=== PATIENT | female | born 1945 | race Caucasian/White ===

== ENCOUNTER 2016-08-16 12:39 | Inpatient (IN) | payer MEDICARE, MEDICAID ==
[~2016-08-16] VITALS: Ht 165.1 cm; Wt 86.2 kg
[~2016-08-16 12:39] MED LIST: DIOVAN PO; NORCO PO; WARF2.5T47 PO; WARF5TAB77 PO
[2016-08-16] MEDS ORDERED: WARF10TA2 PO (12:57)
[2016-08-16] MEDS ORDERED: ONDANSETRON 4 MG/2 ML VIAL IV ONE (13:00)
[2016-08-16] MEDS ORDERED: MORPHINE SULFATE 2 MG/1 ML DISP.SYRIN IV ONE ×2 (13:00→14:15)
[2016-08-16 13:19] LABS: BASOPHILS % (AUTO) 0.4 % (0.0-2.0); EOSINOPHILS # (AUTO) 0.3 K/uL (0.0-0.7); EOSINOPHILS % (AUTO) 2.4 % (0.0-7.0); HEMATOCRIT 29.8 % (37-47); HEMOGLOBIN 9.5 G/DL (12.0-16.0); LYMPHOCYTES # (AUTO) 2.1 K/UL (0.8-4.8); LYMPHOCYTES % (AUTO) 18.4 % (20.5-51.5); MEAN CORPUSCULAR HEMOGLOBIN 24.4 UUG (27.0-31.0); MEAN CORPUSCULAR HGB CONC 32 g/dL (32.0-37.0); MEAN CORPUSCULAR VOLUME 76.2 FL (81.0-99.0); MONOCYTES # (AUTO) 0.8 K/UL (0.1-1.30); MONOCYTES % (AUTO) 7.1 % (0.0-11.0); NEUTROPHILS # (AUTO) 8.4 K/UL (1.8-8.9); NEUTROPHILS % (AUTO) 71.7 % (38.5-71.5); PLATELET COUNT (AUTO) 398 K/UL (150-450); RED BLOOD CELL COUNT(AUTO) 3.91 MIL/UL (4.2-5.4); WHITE BLOOD COUNT (AUTO) 11.6 K/UL (4.0-11.2)
[2016-08-16 13:22] LABS: CARBON DIOXIDE 27 mmol/L (21-32); CHLORIDE 99 mmol/L (98-107); CREATININE 0.7 mg/dL (0.6-1.3); GLUCOSE 127 mg/dL (74-106); POTASSIUM 3.6 mmol/L (3.5-5.1); UREA NITROGEN, BLOOD 17 mg/dL (7-18)
[2016-08-16] MEDS ORDERED: MORPHINE SULFATE 4 MG/1 ML DISP.SYRIN ONE ×2 (13:23→14:40)
[2016-08-16] MEDS ORDERED: ONDANSETRON 4 MG/2 ML VIAL ONE (13:24)
[2016-08-16 13:29] LABS: ALANINE AMINOTRANSFERASE 21 U/L (14-59); ALKALINE PHOSPHATASE 52 U/L (50-136); ASPARTATE AMINOTRANSFERASE 16 U/L (15-37); BILIRUBIN,DIRECT < 0.1 mg/dL (0.0-0.2); BILIRUBIN,TOTAL 0.2 mg/dL (0.2-1.0); TOTAL PROTEIN, SERUM 6.8 g/dL (6.4-8.2)
[2016-08-16] MEDS ORDERED: IV NORMAL SALINE 1000 ML BAG IV ONE (14:15)
--- NOTE | 2016-08-16 14:51 | NUR ---
LEXY LEDESMA TALKED TO DR. CHATO GARCIA FOR ORTHO CONSULT.
--- NOTE | 2016-08-16 15:23 | NUR ---
PT RECEIVED FROM ER VIA RNEPHI FOR LEFT HIP FX IN STABLE CONDITION.V/S ARE STABLE.ORIENT THE PT TO ROOM AND SURROUNDINGS,FAMILY AT BED SIDE.
[2016-08-16 15:30] VITALS: BP 107/66
[2016-08-16] MEDS ORDERED: ONDANSETRON 4 MG/2 ML VIAL IV PRN (16:00)
[2016-08-16] MEDS ORDERED: ACETAMINOPHEN 650 MG SUPP.RECT RC PRN (16:00)
--- NOTE | 2016-08-16 16:30 | NUR ---
PT SEEN BY DR GARCIA AND DR HAMPTON
[2016-08-16 16:40] LABS: *BILIRUBIN,URIN NEGATIVE (NEGATIVE); *BLOOD, URINE Trace-lysed (NEGATIVE); *CLARITY,URINE CLEAR (CLEAR); *COLOR,URINE YELLOW (YELLOW); *KETONES,URINE NEGATIVE (NEGATIVE); *PROTEIN,URINE NEGATIVE (NEGATIVE); *UROBILINOGEN,URINE 0.2 E.U./dl (NORMAL); LEUKOCYTE ESTERASE ,URINE NEGATIVE (NEGATIVE); NITRITE, URINE NEGATIVE (NEGATIVE); UGLUCOSE NEGATIVE (NEGATIVE)
[2016-08-16] MEDS: FUROSEMIDE 20 MG/2 ML VIAL IV SCH (16:45)
[2016-08-16 16:52] LABS: SQUAMOUS EPITHELIAL CELL,UR FEW /HPF (NONE SEEN); WBC,URINE 0-3 /HPF (0-3)
[2016-08-16 20:00] VITALS: BP 96/55
--- NOTE | 2016-08-16 20:00 | NUR ---
PATIENT AWAKE,ALERT,ORIENTED,FAMILY VISITING AT BEDSIDE,NSR ON MONITOR,LEFT LEG WITH FELICIANO'S TRACTION ON, PEDAL PULSE INTACT,SKIN WARM,PATIENT RESTING WELL REPORTS MINIMAL PAIN,YANEZ CATH INTACT DRAINAGE CLEAR YELLOWISH URINE.
[2016-08-16 22:51] VITALS: BP 110/66
[2016-08-16] MEDS: MORPHINE SULFATE 2 MG/1 ML DISP.SYRIN IV PRN (22:54)
--- NOTE | 2016-08-16 23:00 | NUR ---
BP 112/60 MORPHINE 2 MG IV ADMIN FOR PAIN TO LEFT HIP 12/03,CONTINUE CLOSELY MONITOR.
--- NOTE | 2016-08-16 23:35 | NUR ---
PAIN REASSESS,MORPHINE EFFECTIVE PAIN LEVEL 2/10,PATIENT TURN AND REPOSITIONING APPEARS COMFORTABLE ,BP 111/70,NSR RATE 80'S BPM.
[2016-08-16 23:56] VITALS: BP 111/70
[2016-08-17] MEDS: MORPHINE SULFATE 2 MG/1 ML DISP.SYRIN IV PRN ×5 (02:44→20:24)
[2016-08-17 04:00] VITALS: BP 110/78
--- NOTE | 2016-08-17 06:20 | NUR ---
continue pain management with morphine 2 mg iv q 3h as needed for pain control,orozco cath drainage adequate clear urine out put,bp 110/78, NSR rate 80's on monitor.
[2016-08-17] MEDS: PANTOPRAZOLE SODIUM 40 MG TABLET.DR PO SCH (06:30)
[2016-08-17 07:11] LABS: THYROID STIMULATING HORMONE 2.177 mIU/mL (0.358-3.740)
[2016-08-17 07:17] LABS: BASOPHILS % (AUTO) 0.4 % (0.0-2.0); EOSINOPHILS # (AUTO) 0.3 K/uL (0.0-0.7); EOSINOPHILS % (AUTO) 2.3 % (0.0-7.0); HEMATOCRIT 27.8 % (37-47); LYMPHOCYTES # (AUTO) 2.2 K/UL (0.8-4.8); LYMPHOCYTES % (AUTO) 18.9 % (20.5-51.5); MEAN CORPUSCULAR HEMOGLOBIN 24.9 UUG (27.0-31.0); MEAN CORPUSCULAR HGB CONC 32 g/dL (32.0-37.0); MEAN CORPUSCULAR VOLUME 76.9 FL (81.0-99.0); MONOCYTES # (AUTO) 0.8 K/UL (0.1-1.30); MONOCYTES % (AUTO) 7.1 % (0.0-11.0); NEUTROPHILS # (AUTO) 8.2 K/UL (1.8-8.9); NEUTROPHILS % (AUTO) 71.3 % (38.5-71.5); PLATELET COUNT (AUTO) 375 K/UL (150-450); RED BLOOD CELL COUNT(AUTO) 3.62 MIL/UL (4.2-5.4); WHITE BLOOD COUNT (AUTO) 11.5 K/UL (4.0-11.2)
[2016-08-17 07:20] LABS: IRON, SERUM 21 ug/dL (50-175)
[2016-08-17 07:24] LABS: ALANINE AMINOTRANSFERASE 19 U/L (14-59); ALKALINE PHOSPHATASE 50 U/L (50-136); ASPARTATE AMINOTRANSFERASE 17 U/L (15-37); BILIRUBIN,TOTAL 0.2 mg/dL (0.2-1.0); CARBON DIOXIDE 30 mmol/L (21-32); CHLORIDE 100 mmol/L (98-107); CHOLESTEROL 188 mg/dL (<200); CREATININE 0.6 mg/dL (0.6-1.3); GLUCOSE 92 mg/dL (74-106); HDL CHOLESTEROL 45 mg/dL (40-60); MAGNESIUM 1.6 mg/dL (1.8-2.4); PHOSPHOROUS 3.8 mg/dL (2.5-4.9); POTASSIUM 3.8 mmol/L (3.5-5.1); TOTAL PROTEIN, SERUM 6.3 g/dL (6.4-8.2); TRIGLYCERIDES 127 MG/DL (30-150); UREA NITROGEN, BLOOD 17 mg/dL (7-18)
[2016-08-17] MEDS: FUROSEMIDE 20 MG/2 ML VIAL IV SCH (08:13)
[2016-08-17] MEDS ORDERED: PANTOPRAZOLE SODIUM 40 MG VIAL IV SCH (09:00)
[2016-08-17] MEDS ORDERED: PHYTONADIONE 10 MG/1 ML AMPUL SQ ONE (11:30)
[2016-08-17 11:42] VITALS: BP 115/71
[2016-08-17] MEDS: MAGNESIUM SULFATE/D5W 100 ML IV SCH ×2 (11:52→12:31)
[2016-08-17 16:00] VITALS: BP 130/77
[2016-08-17] MEDS ORDERED: DOCUSATE SODIUM 100 MG/10 ML LIQUID UDC PO PRN (19:00)
[2016-08-17] MEDS: ACETAMINOPHEN 325 MG TABLET PO PRN (19:58)
[2016-08-17 20:48] VITALS: BP 113/71
--- NOTE | 2016-08-17 21:00 | NUR ---
patient seen by REID Bender. on tele monitor,TELE D/C.Patient resting well, sponge bath given, reposition and turn,proper body alignment observed, continue Baez's Traction ,pedal pulse intact,patient encouraged to use exercise incentive spirometer,doing well.continue pain control with morphine 2mg iv as needed,closely monitor bp and stable.
[2016-08-17] MEDS ORDERED: DOCUSATE SODIUM 100 MG/10 ML LIQUID UDC ONE (21:38)
[2016-08-18] MEDS: MORPHINE SULFATE 2 MG/1 ML DISP.SYRIN IV PRN ×3 (03:08→21:34)
[2016-08-18 05:00] VITALS: BP 113/68
[2016-08-18 06:46] LABS: BASOPHILS # (AUTO) 0.1 K/uL (0.0-8.0); BASOPHILS % (AUTO) 0.5 % (0.0-2.0); EOSINOPHILS # (AUTO) 0.3 K/uL (0.0-0.7); EOSINOPHILS % (AUTO) 3.4 % (0.0-7.0); HEMATOCRIT 27.2 % (37-47); HEMOGLOBIN 8.7 G/DL (12.0-16.0); LYMPHOCYTES # (AUTO) 1.7 K/UL (0.8-4.8); LYMPHOCYTES % (AUTO) 16.8 % (20.5-51.5); MEAN CORPUSCULAR HEMOGLOBIN 24.5 UUG (27.0-31.0); MEAN CORPUSCULAR HGB CONC 32 g/dL (32.0-37.0); MEAN CORPUSCULAR VOLUME 76.4 FL (81.0-99.0); MONOCYTES # (AUTO) 0.8 K/UL (0.1-1.30); MONOCYTES % (AUTO) 8.3 % (0.0-11.0); NEUTROPHILS # (AUTO) 7.1 K/UL (1.8-8.9); PLATELET COUNT (AUTO) 326 K/UL (150-450); RED BLOOD CELL COUNT(AUTO) 3.57 MIL/UL (4.2-5.4)
[2016-08-18] MEDS: PANTOPRAZOLE SODIUM 40 MG TABLET.DR PO SCH (07:05)
[2016-08-18 07:31] LABS: CARBON DIOXIDE 31 mmol/L (21-32); CHLORIDE 100 mmol/L (98-107); CREATININE 0.4 mg/dL (0.6-1.3); GLUCOSE 100 mg/dL (74-106); MAGNESIUM 1.9 mg/dL (1.8-2.4); PHOSPHOROUS 2.9 mg/dL (2.5-4.9); POTASSIUM 3.7 mmol/L (3.5-5.1); UREA NITROGEN, BLOOD 10 mg/dL (7-18)
[2016-08-18] MEDS: IV NS 1000 ML 1,000 ML IV PRN ×2 (08:41→23:46)
[2016-08-18] MEDS ORDERED: LIDOCAINE HCL 1% 20 ML VIAL MC ONE (09:33)
[2016-08-18] MEDS ORDERED: PROPOFOL 200 MG/20 ML BOTTLE IV ONE (09:33)
[2016-08-18] MEDS ORDERED: IV NORMAL SALINE 1000 ML BAG IV ONE (09:33)
[2016-08-18] MEDS ORDERED: ONDANSETRON 4 MG/2 ML VIAL IV ONE (09:33)
[2016-08-18] MEDS ORDERED: EPHEDRINE SULFATE 50 MG/ML AMPUL MC ONE (09:33)
[2016-08-18] MEDS ORDERED: GLYCOPYRROLATE 0.2 MG/ML VIAL MC ONE (09:33)
[2016-08-18] MEDS ORDERED: CEFAZOLIN 1 G VIAL MC ONE (09:33)
[2016-08-18] MEDS ORDERED: NEOSTIGMINE METHYLSULFATE 10 MG/10 ML VIAL IV ONE (09:33)
[2016-08-18] MEDS ORDERED: DEXAMETHASONE SOD PHOSPHATE 4 MG INJ IV ONE (09:33)
[2016-08-18] MEDS ORDERED: IRR NORMAL SALINE IRRIGATION 2000 ML BOTTLE IR ONE (09:33)
[2016-08-18] MEDS ORDERED: SEVOFLURANE 250 ML BOTTLE IH ONE (09:38)
[2016-08-18 11:52] VITALS: BP 133/81
[2016-08-18] MEDS ORDERED: POLYMYXIN B SULFATE 500,000 UNITS, BACITRACIN 50,000 UNITS, NORMAL SALINE 20 ML MC ONE ×3 (13:30)
--- NOTE | 2016-08-18 13:50 | NUR ---
pt went to or for surgery via bed in stable condition.
[2016-08-18] MEDS ORDERED: FENTANYL CITRATE 100 MCG/2 ML AMPUL ONE ×2 (13:56→17:18)
[2016-08-18] MEDS ORDERED: ROCURONIUM BROMIDE 50 MG/5 ML VIAL ONE (14:11)
[2016-08-18] MEDS ORDERED: HYDROCODONE/APAP 5-325MG TABLET PO PRN (16:45)
[2016-08-18] MEDS ORDERED: WARFARIN SODIUM 2.5 MG TABLET PO SCH (17:00)
--- NOTE | 2016-08-18 17:45 | NUR ---
PT RECEIVED FROM RECOVERY ROOM VIA BED IN STABLE CONDITION .V/S ARE STABLE.
[2016-08-18 17:46] VITALS: BP 103/50
[2016-08-18 18:03] VITALS: BP 103/65
[2016-08-18 18:17] VITALS: BP 110/66
--- NOTE | 2016-08-18 19:30 | NUR ---
AWAKE,FAMILY AT BEDSIDELEFT HIP DRESSINGS DRY AND INTACT,ABDUCTOR PILLOW INTACT.SPEAKS FARSI.IN NO ACUTE DISTRESS. RESTING COMFORTABLY.
[2016-08-18] MEDS: OLOPATADINE 0.1% OPHT DROP 5 ML BOTTLE EACHEYE SCH (19:47)
[2016-08-18 20:12] VITALS: BP 114/76
[2016-08-18] MEDS ORDERED: DOCUSATE SODIUM 100 MG/10 ML LIQUID UDC PO PRN (21:00)
[2016-08-18] MEDS: CEFAZOLIN 1 G in PREMIXED 1 EACH IV SCH (21:23)
[2016-08-19] VITALS (13 sets, daily range): BP systolic 90–130; BP diastolic 46–74
[2016-08-19] MEDS: MORPHINE SULFATE 2 MG/1 ML DISP.SYRIN IV PRN ×2 (00:22→17:44)
[2016-08-19] MEDS: IBUPROFEN 600 MG TABLET PO PRN (01:37)
[2016-08-19] MEDS: ACETAMINOPHEN 325 MG TABLET PO PRN (01:37)
[2016-08-19] MEDS ORDERED: IBUPROFEN 600 MG TABLET ONE (01:47)
[2016-08-19] MEDS ORDERED: ACETAMINOPHEN 325 MG TABLET ONE (01:47)
--- NOTE | 2016-08-19 02:01 | NUR ---
CALLED DR CRUZ REGARDING MEDICATION NOT EFFECTIVE,ORDERED TYLENOL AND MOTRIN FOR PAIN .
[2016-08-19] MEDS: CEFAZOLIN 1 G in PREMIXED 1 EACH IV SCH (05:15)
--- NOTE | 2016-08-19 05:55 | NUR ---
SLEPT AFTER GIVING TYLENOL AND MOTRIN,IN NO ACUTE DISTRESS.
[2016-08-19] MEDS: PANTOPRAZOLE SODIUM 40 MG TABLET.DR PO SCH (06:04)
[2016-08-19 06:46] LABS: BASOPHILS % (AUTO) 0.2 % (0.0-2.0); EOSINOPHILS % (AUTO) 0.4 % (0.0-7.0); HEMOGLOBIN 7.2 G/DL (12.0-16.0); LYMPHOCYTES # (AUTO) 1.5 K/UL (0.8-4.8); LYMPHOCYTES % (AUTO) 13.7 % (20.5-51.5); MEAN CORPUSCULAR HEMOGLOBIN 24.5 UUG (27.0-31.0); MEAN CORPUSCULAR HGB CONC 32 g/dL (32.0-37.0); MEAN CORPUSCULAR VOLUME 77.3 FL (81.0-99.0); MONOCYTES # (AUTO) 0.9 K/UL (0.1-1.30); MONOCYTES % (AUTO) 8.8 % (0.0-11.0); NEUTROPHILS # (AUTO) 8.3 K/UL (1.8-8.9); NEUTROPHILS % (AUTO) 76.9 % (38.5-71.5); PLATELET COUNT (AUTO) 318 K/UL (150-450); RED BLOOD CELL COUNT(AUTO) 2.92 MIL/UL (4.2-5.4); WHITE BLOOD COUNT (AUTO) 10.7 K/UL (4.0-11.2)
[2016-08-19 06:55] LABS: CARBON DIOXIDE 26 mmol/L (21-32); CHLORIDE 101 mmol/L (98-107); CREATININE 0.6 mg/dL (0.6-1.3); GLUCOSE 142 mg/dL (74-106); MAGNESIUM 1.7 mg/dL (1.8-2.4); PHOSPHOROUS 2.4 mg/dL (2.5-4.9); POTASSIUM 4.4 mmol/L (3.5-5.1); UREA NITROGEN, BLOOD 12 mg/dL (7-18)
[2016-08-19 07:17] LABS: HEMATOCRIT 22.6 % (37-47)
[2016-08-19] MEDS: OLOPATADINE 0.1% OPHT DROP 5 ML BOTTLE EACHEYE SCH ×2 (08:42→20:18)
[2016-08-19] MEDS ORDERED: FUROSEMIDE 20 MG/2 ML VIAL IV PRN (10:00)
[2016-08-19] MEDS ORDERED: NEUTRA PHOS PACKET PO ONE (10:00)
[2016-08-19] MEDS ORDERED: MAGNESIUM OXIDE 400 MG TABLET PO ONE (10:00)
[2016-08-19] MEDS ORDERED: WARFARIN SODIUM 2.5 MG TABLET PO SCH (17:00)
[2016-08-19] MEDS: WARFARIN SODIUM 2.5 MG TABLET PO SCH (17:43)
[2016-08-19] MEDS ORDERED: MAGNESIUM HYDROXIDE 30 ML LIQUID UDC PO ONE (17:45)
[2016-08-19] MEDS: IV NS 1000 ML 1,000 ML IV PRN (19:30)
--- NOTE | 2016-08-19 19:30 | NUR ---
RESTING IN BED, ALERT AND ORIENTED. FARSI SPEAKING. ABLE TO MAKE NEEDS KNOWN. DRESSING ON TO LEFT HIP DRY AND INTACT. NO COMPLAINTS OF PAIN NOTED AT THIS TIME. PATIENT CURRENTLY ON HEPLOCK, REFUSED IV FLUIDS AT THIS TIME. EXPLAINED RISK AND BENEFITS BUT STILL REFUSED. WILL CONTINUE TO ENCOURAGE. WITH COMPLAINTS OF CONSTIPATION. CALL LIGHT WITHIN REACH. WILL CONTINUE TO MONITOR
[2016-08-19] MEDS ORDERED: BISACODYL 10 MG SUPP.RECT RC ONE (22:00)
--- NOTE | 2016-08-19 22:45 | NUR ---
SUPPOSITORY WAS GIVEN ORDERED, PATIENT NOW HAD LARGE BM
[2016-08-20] MEDS: PANTOPRAZOLE SODIUM 40 MG TABLET.DR PO SCH (06:10)
[2016-08-20 06:33] VITALS: BP 149/90
--- NOTE | 2016-08-20 06:33 | NUR ---
SLEPT INTERMITTENTLY DURING THE SHIFT. NO ACUTE DISTRESS NOTED. ABLE TO ASSIST DURING TURNING AND REPOSITIONING. NEEDS ATTENDED. ALL DUE MEDS GIVEN ORDERED. KEPT CLEAN AND DRY. CALL LIGHT WITHIN REACH
--- NOTE | 2016-08-20 07:15 | NUR ---
PT RECEIVED IN BED SLEEPING .NO C/O PAIN NOTED.V/S ARE STABLE.
[2016-08-20 07:30] LABS: BASOPHILS % (AUTO) 0.4 % (0.0-2.0); EOSINOPHILS # (AUTO) 0.2 K/uL (0.0-0.7); EOSINOPHILS % (AUTO) 2.1 % (0.0-7.0); HEMATOCRIT 28.3 % (37-47); HEMOGLOBIN 9.3 G/DL (12.0-16.0); LYMPHOCYTES # (AUTO) 2.2 K/UL (0.8-4.8); LYMPHOCYTES % (AUTO) 18.7 % (20.5-51.5); MEAN CORPUSCULAR HEMOGLOBIN 26.1 UUG (27.0-31.0); MEAN CORPUSCULAR HGB CONC 33 g/dL (32.0-37.0); MEAN CORPUSCULAR VOLUME 79.2 FL (81.0-99.0); MONOCYTES # (AUTO) 1.2 K/UL (0.1-1.30); MONOCYTES % (AUTO) 9.9 % (0.0-11.0); NEUTROPHILS # (AUTO) 8.3 K/UL (1.8-8.9); NEUTROPHILS % (AUTO) 68.9 % (38.5-71.5); PLATELET COUNT (AUTO) 324 K/UL (150-450); RED BLOOD CELL COUNT(AUTO) 3.57 MIL/UL (4.2-5.4); WHITE BLOOD COUNT (AUTO) 11.9 K/UL (4.0-11.2)
--- NOTE | 2016-08-20 07:32 | NUR ---
FOLLY CATHETER REMOVED PER MD ORDERS.
[2016-08-20 07:43] LABS: CARBON DIOXIDE 29 mmol/L (21-32); CHLORIDE 100 mmol/L (98-107); CREATININE 0.5 mg/dL (0.6-1.3); GLUCOSE 101 mg/dL (74-106); MAGNESIUM 1.8 mg/dL (1.8-2.4); POTASSIUM 3.9 mmol/L (3.5-5.1); UREA NITROGEN, BLOOD 11 mg/dL (7-18)
[2016-08-20] MEDS: OLOPATADINE 0.1% OPHT DROP 5 ML BOTTLE EACHEYE SCH (08:05)
[2016-08-20] MEDS: IBUPROFEN 600 MG TABLET PO PRN ×2 (09:03→13:28)
--- NOTE | 2016-08-20 11:02 | NUR ---
PT SEEN AND EVALUATED BY PHYSICAL THERAPIST ,PT IS SITTING UP IN THE CHAIR
[2016-08-20 12:01] VITALS: BP 126/83
[2016-08-20] MEDS: ACETAMINOPHEN 325 MG TABLET PO PRN (13:28)
--- NOTE | 2016-08-20 13:40 | NUR ---
OH WALK WITH THE PHYSICAL THERAPY ,TOLERATED WELL,NO C/O PAIN NOTED,
[2016-08-20 15:58] VITALS: BP 116/64
[2016-08-20] MEDS ORDERED: NEUTRA PHOS PACKET PO ONE (16:00)
[2016-08-20] MEDS ORDERED: WARF2.5T47 PO (16:12)
[2016-08-20] MEDS ORDERED: DOCU50LI PO (16:12)
[2016-08-20] MEDS ORDERED: HYDR-552 PO (16:12)
[2016-08-20] MEDS ORDERED: ACET325T53 PO (16:12)
--- NOTE | 2016-08-20 16:14 | NUR ---
The patient will be discharged today to [facility] [ ; [address] [place] [address]] via [facility]. Her family was given a [facility] booklet and they toured, [facility], [facility], [facility] and [facility]. Their first choice was [facility] but they were not able to accommodate the patient. Their second choice was [facility]. Julianne from [facility] confirmed that they will admit the patient today. Her nurse, Elizabeth, is aware of her discharge plan and will call the facility for the report.
[2016-08-20] MEDS: WARFARIN SODIUM 2.5 MG TABLET PO SCH (16:51)
--- NOTE | 2016-08-20 17:49 | NUR ---
D/C ORDERS RECEIVED NOTED AND CARRIED OUT.D/C INSTRUCTIONS AND EDUCATIONS GIVEN TI THE PT .RN REPORT GIVEN OVER TO [facility].PT LEFT THE FACILITY VIA AMBULANCES IN STABLE CONDITION.
== END 2016-08-20 17:45 | DRG 469 ==
LOC: ER 12:39 → MED 14:55 → TELE 16:40 → MED 08-17 23:24
PROVIDERS: ADMIT Internal Medicine; ATTEND Internal Medicine
PROC: 0SRS0JZ Replacement of Left Hip Joint, Femoral Surface with Synthetic Substitute, Open Approach (ICD-10-PCS; principal; 2016-08-18 14:00)
PROC: 30233N1 Transfusion of Nonautologous Red Blood Cells into Peripheral Vein, Percutaneous Approach (ICD-10-PCS; 2016-08-19)
DX: S72.032A Displaced midcervical fracture of left femur, initial encounter for closed fracture (principal); I50.31 Acute diastolic (congestive) heart failure; D62 Acute posthemorrhagic anemia; Z87.01 Personal history of pneumonia (recurrent); W01.0XXA Fall on same level from slipping, tripping and stumbling without subsequent striking against object, initial encounter; Y92.009 Unspecified place in unspecified non-institutional (private) residence as the place of occurrence of the external cause; E66.01 Morbid (severe) obesity due to excess calories; Z68.31 Body mass index [BMI] 31.0-31.9, adult; M25.462 Effusion, left knee; I27.2 Other secondary pulmonary hypertension; G89.29 Other chronic pain; K21.9 Gastro-esophageal reflux disease without esophagitis; Z87.81 Personal history of (healed) traumatic fracture; E78.5 Hyperlipidemia, unspecified; D72.829 Elevated white blood cell count, unspecified; R73.9 Hyperglycemia, unspecified; Z86.711 Personal history of pulmonary embolism; Z86.011 Personal history of benign neoplasm of the brain; Z90.49 Acquired absence of other specified parts of digestive tract; Z86.718 Personal history of other venous thrombosis and embolism; Z79.01 Long term (current) use of anticoagulants; I11.0 Hypertensive heart disease with heart failure; D50.0 Iron deficiency anemia secondary to blood loss (chronic)
CPT/HCPCS: 36415; 70030-TC; 71010; 72170; 73502; 73560; 82378; 83550; 83735; 84100; 84443; 85025; 85610; 85730; 86850; 86900; 86901; 86920; 87086; 93005; 93307; 97110; 97116; 97161; A4217; A4663; J0690; J1100; J1940; J2270; J2405; J2710; J3010; J3490; J7030; J7040; P9016-BL; P9021

== ENCOUNTER 2016-08-26 09:49 | Inpatient (IN) | payer MEDICARE, MEDICAID ==
[~2016-08-26] VITALS: Ht 157.5 cm; Wt 94.8 kg
[~2016-08-26 09:49] MED LIST changes: +ACET325T53 PO; -DIOVAN PO; +DOCU50LI PO; +HYDR-552 PO; -NORCO PO; -WARF5TAB77 PO
[2016-08-26] MEDS ORDERED: PANT40TA4 PO (10:19)
[2016-08-26] MEDS ORDERED: FERR325T28 PO (10:19)
[2016-08-26] MEDS ORDERED: RIVA10TA PO (10:19)
[2016-08-26] MEDS ORDERED: MAGN400T6 PO (10:19)
[2016-08-26] MEDS ORDERED: FURO-152 PO (10:19)
--- NOTE | 2016-08-26 10:24 | NUR ---
dr melgar at the bedside for eval and exam.
[2016-08-26] MEDS ORDERED: IV NORMAL SALINE 500 ML BAG IV ONE (10:30)
[2016-08-26] MEDS ORDERED: HYDROMORPHONE 1 MG/1 ML DISP.SYRIN IV ONE (10:45)
[2016-08-26] MEDS ORDERED: ONDANSETRON IV *ER 4 MG/2 ML VIAL IV ONE (10:45)
[2016-08-26 10:48] LABS: BASOPHILS % (AUTO) 0.3 % (0.0-2.0); EOSINOPHILS # (AUTO) 0.3 K/uL (0.0-0.7); EOSINOPHILS % (AUTO) 1.8 % (0.0-7.0); HEMATOCRIT 29.2 % (37-47); HEMOGLOBIN 9.5 G/DL (12.0-16.0); LYMPHOCYTES # (AUTO) 2.1 K/UL (0.8-4.8); MEAN CORPUSCULAR HEMOGLOBIN 25.8 UUG (27.0-31.0); MEAN CORPUSCULAR HGB CONC 32 g/dL (32.0-37.0); MEAN CORPUSCULAR VOLUME 79.7 FL (81.0-99.0); MONOCYTES # (AUTO) 0.7 K/UL (0.1-1.30); MONOCYTES % (AUTO) 4.6 % (0.0-11.0); NEUTROPHILS # (AUTO) 11.2 K/UL (1.8-8.9); NEUTROPHILS % (AUTO) 78.3 % (38.5-71.5); PLATELET COUNT (AUTO) 470 K/UL (150-450); RED BLOOD CELL COUNT(AUTO) 3.67 MIL/UL (4.2-5.4); WHITE BLOOD COUNT (AUTO) 14.3 K/UL (4.0-11.2)
[2016-08-26 10:55] LABS: CARBON DIOXIDE 26 mmol/L (21-32); CHLORIDE 96 mmol/L (98-107); CREATININE 0.9 mg/dL (0.6-1.3); GLUCOSE 78 mg/dL (74-106); POTASSIUM 4.8 mmol/L (3.5-5.1); UREA NITROGEN, BLOOD 28 mg/dL (7-18)
--- NOTE | 2016-08-26 11:00 | NUR ---
Mrsa collected and sent to lab. Belonging list completed.
[2016-08-26] MEDS ORDERED: ONDANSETRON 4 MG/2 ML VIAL ONE (11:01)
[2016-08-26] MEDS ORDERED: HYDROMORPHONE 1 MG/1 ML DISP.SYRIN ONE (11:01)
[2016-08-26 11:09] LABS: ALANINE AMINOTRANSFERASE 39 U/L (14-59); ALKALINE PHOSPHATASE 131 U/L (50-136); ASPARTATE AMINOTRANSFERASE 29 U/L (15-37); BILIRUBIN,DIRECT 0.1 mg/dL (0.0-0.2); BILIRUBIN,TOTAL 0.3 mg/dL (0.2-1.0); LIPASE 188 U/L (73-393); TOTAL PROTEIN, SERUM 6.8 g/dL (6.4-8.2)
[2016-08-26] MEDS ORDERED: DICL100G16 TP (11:09)
[2016-08-26] MEDS ORDERED: NA P133E RC (11:14)
[2016-08-26] MEDS ORDERED: BISA10SU8 RC (11:14)
[2016-08-26] MEDS ORDERED: MAGN400O6 PO (11:14)
--- NOTE | 2016-08-26 11:45 | NUR ---
NEW PATIENT TO ROOM 201B AWAKE ALERT COOPERATE WELL NO CHEST PAIN OR SOB VS TAKEN STABLE LEFT HIP SURGICAL INCISION CLEAN DRY WITH STRI STRIP INTACT PEDAL PULSE PALPABLE ABDUCTION PILLOW BET LEG ON FALL PRECAUTION BED ALARM ON AND CALL CHARLES IN REACH INSTRUCTION TO CALL WHEN NEED ,FAMILY AT BEDSIDE
[2016-08-26 12:18] VITALS: BP 98/46
--- NOTE | 2016-08-26 12:30 | NUR ---
DR HAMPTON HERE AND SEEN PATIENT AND DISCUSS WITH PATIENT FAMILY AT BEDSIDE
--- NOTE | 2016-08-26 15:00 | NUR ---
VOIDING WELL INCONTINENT OF URINE DIAPER CHANGE AND REPOSITION
[2016-08-26 15:38] VITALS: BP 111/77
--- NOTE | 2016-08-26 16:00 | NUR ---
C/O OF CONSTIPATION DR HAMPTON WAS INFORN NEW ORDER IN CHART
[2016-08-26] MEDS ORDERED: MAGNESIUM HYDROXIDE 30 ML LIQUID UDC PO PRN (16:30)
[2016-08-26] MEDS ORDERED: FLEET ENEMA 133 ML BOTTLE RC PRN (16:30)
--- NOTE | 2016-08-26 17:00 | NUR ---
MED PO PRN FOR CONSTIPATION GIVEN TODAY EAT DINNER WELL NO PAIN OR N/V
[2016-08-26] MEDS: FERROUS SULFATE 325 MG TABEC PO SCH (17:34)
[2016-08-26] MEDS: BISACODYL 10 MG SUPP.RECT RC PRN (17:34)
--- NOTE | 2016-08-26 18:00 | NUR ---
RESTING WELL SAFETY MEASURE PROVIDED CALL CHARLES IN REACH AND BED ALARM ON
[2016-08-26] MEDS: HYDROCODONE/APAP 5-325MG TABLET PO SCH (19:30)
[2016-08-26 20:00] VITALS: BP 145/98
[2016-08-26] MEDS: MAGNESIUM OXIDE 400 MG TABLET PO SCH (20:56)
--- NOTE | 2016-08-26 21:00 | NUR ---
PT IS ALERT AND RESPONSIVE. RESP IS EVEN AND UNLABORED. NO SOB. NO APPARENT DISTRESS. VSS. SURGICAL INCISION ON LEFT HIP, COVERED WITH STERI STRIPS. HIP PRECAUTIONS RENDERED. ABDUCTION PILLOW IN BETWEEN LEGS. PEDAL PULSES PALPABLE ON BOTH LE.
[2016-08-26 22:50] LABS: *BILIRUBIN,URIN NEGATIVE (NEGATIVE); *BLOOD, URINE 1+ (NEGATIVE); *CLARITY,URINE CLOUDY (CLEAR); *COLOR,URINE LIGHT YELLOW (YELLOW); *KETONES,URINE NEGATIVE (NEGATIVE); *PROTEIN,URINE 1+ (NEGATIVE); *UROBILINOGEN,URINE 0.2 E.U./dl (NORMAL); LEUKOCYTE ESTERASE ,URINE 2+ (NEGATIVE); NITRITE, URINE NEGATIVE (NEGATIVE); PH,URINE 5.5 (5.0-8.0); UGLUCOSE NEGATIVE (NEGATIVE)
[2016-08-26 22:58] LABS: BACTERIA,URINE MANY /HPF (NONE SEEN); SQUAMOUS EPITHELIAL CELL,UR FEW /HPF (NONE SEEN); WBC,URINE 80-100 /HPF (0-3)
[2016-08-26] MEDS ORDERED: CEFTRIAXONE 1 G in IV DEXTROSE 5% 50 ML IV SCH (23:15)
[2016-08-27] MEDS ORDERED: CEFTRIAXONE 1 G VIAL ONE (00:07)
[2016-08-27 00:49] VITALS: BP 118/72
[2016-08-27] MEDS: HYDROCODONE/APAP 5-325MG TABLET PO SCH ×6 (01:13→23:00)
[2016-08-27 04:00] VITALS: BP 120/62
[2016-08-27] MEDS: ACETAMINOPHEN 325 MG TABLET PO PRN ×2 (04:55→20:56)
--- NOTE | 2016-08-27 05:51 | NUR ---
PT IS ALERT AND RESPONSIVE. RESP I EVEN AND UNLABORED. NO SOB. NO ACUTE DISTRESS. HIP PRECAUTIONS RENDERED. ABDUCTOR PILLOW IN PLACE. PEDAL PULSES PALPABLE ON BOTH LE. LLE WITH +3 PITTING EDEMA.
[2016-08-27] MEDS: PANTOPRAZOLE SODIUM 40 MG TABLET.DR PO SCH (06:22)
[2016-08-27 07:31] LABS: BASOPHILS # (AUTO) 0.1 K/uL (0.0-8.0); BASOPHILS % (AUTO) 0.4 % (0.0-2.0); EOSINOPHILS # (AUTO) 0.2 K/uL (0.0-0.7); EOSINOPHILS % (AUTO) 1.4 % (0.0-7.0); HEMATOCRIT 28.3 % (37-47); HEMOGLOBIN 9.1 G/DL (12.0-16.0); LYMPHOCYTES # (AUTO) 2.3 K/UL (0.8-4.8); LYMPHOCYTES % (AUTO) 16.2 % (20.5-51.5); MEAN CORPUSCULAR HEMOGLOBIN 25.5 UUG (27.0-31.0); MEAN CORPUSCULAR HGB CONC 32 g/dL (32.0-37.0); MEAN CORPUSCULAR VOLUME 78.8 FL (81.0-99.0); MONOCYTES # (AUTO) 1.2 K/UL (0.1-1.30); MONOCYTES % (AUTO) 8.6 % (0.0-11.0); NEUTROPHILS # (AUTO) 10.5 K/UL (1.8-8.9); NEUTROPHILS % (AUTO) 73.4 % (38.5-71.5); PLATELET COUNT (AUTO) 500 K/UL (150-450); RED BLOOD CELL COUNT(AUTO) 3.59 MIL/UL (4.2-5.4); WHITE BLOOD COUNT (AUTO) 14.3 K/UL (4.0-11.2)
[2016-08-27 08:33] LABS: ALANINE AMINOTRANSFERASE 35 U/L (14-59); ALKALINE PHOSPHATASE 141 U/L (50-136); ASPARTATE AMINOTRANSFERASE 26 U/L (15-37); BILIRUBIN,TOTAL 0.4 mg/dL (0.2-1.0); CARBON DIOXIDE 28 mmol/L (21-32); CHLORIDE 95 mmol/L (98-107); GLUCOSE 83 mg/dL (74-106); MAGNESIUM 2.2 mg/dL (1.8-2.4); PHOSPHOROUS 3.6 mg/dL (2.5-4.9); POTASSIUM 4.8 mmol/L (3.5-5.1); TOTAL PROTEIN, SERUM 6.6 g/dL (6.4-8.2); UREA NITROGEN, BLOOD 27 mg/dL (7-18)
[2016-08-27] MEDS: FERROUS SULFATE 325 MG TABEC PO SCH ×2 (08:34→16:40)
[2016-08-27] MEDS: FUROSEMIDE 20 MG TABLET PO SCH (08:34)
[2016-08-27] MEDS ORDERED: RIVAROXABAN 10 MG TABLET PO SCH (09:00)
[2016-08-27 11:19] VITALS: BP 117/80
[2016-08-27 12:52] LABS: *OCCULT BLOOD STOOL NEGATIVE (NEGATIVE)
--- NOTE | 2016-08-27 15:01 | NUR ---
PT MOVED TO ROOM 203
[2016-08-27 15:31] VITALS: BP 127/72
[2016-08-27 20:00] VITALS: BP 103/60
[2016-08-27] MEDS: MAGNESIUM OXIDE 400 MG TABLET PO SCH (20:02)
[2016-08-27] MEDS: CEFTRIAXONE 1 G in IV DEXTROSE 5% 50 ML IV SCH (20:03)
[2016-08-28 00:14] VITALS: BP 125/76
[2016-08-28 04:40] VITALS: BP 114/72
--- NOTE | 2016-08-28 05:31 | NUR ---
PT SLEPT INTERMITTENTLY, IN NO ACUTE DISTRESS. PT HAS BEEN REPEATEDLY TAKING OFF HER CLOTHES AND CHICK SEXER. PT IS AMERICAN SPEAKING ONLY, USED TELEPHONE ADJUNCT PROFESSOR OF [place] HISTORY TO COMMUNICATE WITH THE PATIENT. PAIN MANAGEMENT ORDERED. ASSISTED WITH TOILETING NEEDS, KEPT CLEAN/DRY. CALL LIGHT WITHIN REACH, BED ALARM ON. WILL CONTINUE TO MONITOR
[2016-08-28] MEDS: HYDROCODONE/APAP 5-325MG TABLET PO SCH ×3 (05:36→17:00)
[2016-08-28] MEDS: PANTOPRAZOLE SODIUM 40 MG TABLET.DR PO SCH (06:01)
[2016-08-28 06:41] LABS: EOSINOPHILS # (AUTO) 0.2 K/uL (0.0-0.7); EOSINOPHILS % (AUTO) 0.9 % (0.0-7.0); HEMATOCRIT 30.5 % (37-47); HEMOGLOBIN 10.1 G/DL (12.0-16.0); LYMPHOCYTES # (AUTO) 2.6 K/UL (0.8-4.8); LYMPHOCYTES % (AUTO) 12.1 % (20.5-51.5); MEAN CORPUSCULAR HGB CONC 33 g/dL (32.0-37.0); MONOCYTES # (AUTO) 1.4 K/UL (0.1-1.30); MONOCYTES % (AUTO) 6.4 % (0.0-11.0); NEUTROPHILS # (AUTO) 17.3 K/UL (1.8-8.9); NEUTROPHILS % (AUTO) 80.6 % (38.5-71.5); PLATELET COUNT (AUTO) 573 K/UL (150-450); RED BLOOD CELL COUNT(AUTO) 3.86 MIL/UL (4.2-5.4)
[2016-08-28 06:59] LABS: CARBON DIOXIDE 27 mmol/L (21-32); CHLORIDE 94 mmol/L (98-107); CREATININE 1.8 mg/dL (0.6-1.3); GLUCOSE 74 mg/dL (74-106); MAGNESIUM 2.5 mg/dL (1.8-2.4); PHOSPHOROUS 4.7 mg/dL (2.5-4.9); UREA NITROGEN, BLOOD 33 mg/dL (7-18)
[2016-08-28 07:20] LABS: WHITE BLOOD COUNT (AUTO) 21.5 K/UL (4.0-11.2)
[2016-08-28] MEDS: FERROUS SULFATE 325 MG TABEC PO SCH ×2 (08:35→16:50)
[2016-08-28] MEDS: FUROSEMIDE 20 MG TABLET PO SCH (08:35)
[2016-08-28] MEDS ORDERED: RIVAROXABAN 10 MG TABLET PO SCH (08:40)
[2016-08-28 10:48] LABS: BAND % (MANUAL) 3 % (0-10); EOSINOPHILS % (MANUAL) 1 % (0-8); LYMPHOCYTES % (MANUAL) 12 % (20-40); MONOCYTES % (MANUAL) 7 % (2-10); NEUTROPHILS % (MANUAL) 77 % (42-75)
[2016-08-28] MEDS: VANCOMYCIN FOR PO/GT/NG USE PO SCH ×2 (11:41→17:00)
[2016-08-28] MEDS: DOCUSATE SODIUM 100 MG CAPSULE PO SCH (11:41)
[2016-08-28 12:02] VITALS: BP 104/76
[2016-08-28 15:46] VITALS: BP 110/73
[2016-08-28] MEDS: IV NS 1000 ML 1,000 ML IV PRN (16:50)
[2016-08-28] MEDS: RIVAROXABAN 10 MG TABLET PO SCH (17:02)
--- NOTE | 2016-08-28 19:30 | NUR ---
RECEIVED PATIENT LAYING IN BED. HOB ELEVATED. NO ACUTE DISTRESS NOTED. FAMILY AT BEDSIDE. SAFETY INITIATED. CALL LIGHT WITHIN REACH. WILL REVIEW MEDS. WILL GIVE MEDS ORDERED. Addendum: 08/28/16 at 2116 by CHRISTIAN QUINONEZ RN TELE SR AT 70.
[2016-08-28 20:00] VITALS: BP 119/73
--- NOTE | 2016-08-28 20:30 | NUR ---
BLADDER SCAN WAS DONE. SCAN REVEALED BLADDER WAS FULL [address] SMITH FOR ORDERS.
[2016-08-28] MEDS: MAGNESIUM OXIDE 400 MG TABLET PO SCH (20:38)
[2016-08-28] MEDS: CEFTRIAXONE 1 G in IV DEXTROSE 5% 50 ML IV SCH (20:38)
--- NOTE | 2016-08-28 21:10 | NUR ---
DR. SMITH APPROVED AN ORDER FOR YANEZ CATH INSERTION.
--- NOTE | 2016-08-28 22:15 | NUR ---
YANEZ INSERTED WITH THE HELP OF CHARGE NURSE MARILEE AND DICK PRICE. TOTAL OUTPUT WAS 1350.
--- NOTE | 2016-08-28 23:00 | NUR ---
[facility] BED ALARM WAS NOT WORKING. AIR MATTRESS ORDERED AND INSTALLED.
[2016-08-29] VITALS: BP 119/74
[2016-08-29] MEDS: VANCOMYCIN FOR PO/GT/NG USE PO SCH ×5 (00:29→23:11)
[2016-08-29] MEDS: HYDROCODONE/APAP 5-325MG TABLET PO SCH ×4 (00:29→17:39)
[2016-08-29 02:45] VITALS: BP 104/65
[2016-08-29 04:00] VITALS: BP 112/73
[2016-08-29] MEDS: PANTOPRAZOLE SODIUM 40 MG TABLET.DR PO SCH (06:14)
[2016-08-29 06:55] LABS: EOSINOPHILS # (AUTO) 0.2 K/uL (0.0-0.7); EOSINOPHILS % (AUTO) 1.4 % (0.0-7.0); HEMATOCRIT 29.3 % (37-47); HEMOGLOBIN 9.6 G/DL (12.0-16.0); LYMPHOCYTES # (AUTO) 1.7 K/UL (0.8-4.8); LYMPHOCYTES % (AUTO) 9.5 % (20.5-51.5); MEAN CORPUSCULAR HGB CONC 33 g/dL (32.0-37.0); MEAN CORPUSCULAR VOLUME 79.3 FL (81.0-99.0); MONOCYTES # (AUTO) 1.2 K/UL (0.1-1.30); MONOCYTES % (AUTO) 6.9 % (0.0-11.0); NEUTROPHILS # (AUTO) 14.8 K/UL (1.8-8.9); NEUTROPHILS % (AUTO) 82.2 % (38.5-71.5); RED BLOOD CELL COUNT(AUTO) 3.69 MIL/UL (4.2-5.4); WHITE BLOOD COUNT (AUTO) 17.9 K/UL (4.0-11.2)
--- NOTE | 2016-08-29 07:09 | NUR ---
PATIENT SLEPT INTERMITTENTLY T/O THE NIGHT. NO ACUTE DISTRESS NOTED. PATIENT COMPLAINED OF PAIN, ADMINISTERED PAIN MEDICATION. STATED RELIEF. PATIENT WAS PUT ON AN AIR MATTRESS. BLADDER U/S DONE, YANEZ WAS INSERTED BECAUSE OF A FULL BLADDER. BED BATH WAS DONE. SAFETY WAS MAINTAINED T/O SHIFT. CALL LIGHT WITHIN REACH. ALL NEEDS MET. ALL MEDS GIVEN ORDERED. INCISION ON THE LEFT HIP WAS KEPT [id number].
[2016-08-29 07:12] LABS: PLATELET COUNT (AUTO) 562 K/UL (150-450)
[2016-08-29 07:38] LABS: CARBON DIOXIDE 25 mmol/L (21-32); CHLORIDE 92 mmol/L (98-107); CREATININE 1.7 mg/dL (0.6-1.3); GLUCOSE 66 mg/dL (74-106); MAGNESIUM 2.5 mg/dL (1.8-2.4); PHOSPHOROUS 4.7 mg/dL (2.5-4.9); POTASSIUM 4.9 mmol/L (3.5-5.1); UREA NITROGEN, BLOOD 44 mg/dL (7-18)
[2016-08-29] MEDS: FERROUS SULFATE 325 MG TABEC PO SCH ×2 (08:07→17:36)
[2016-08-29] MEDS: FUROSEMIDE 20 MG TABLET PO SCH (08:07)
[2016-08-29] MEDS: DOCUSATE SODIUM 100 MG CAPSULE PO SCH (08:07)
[2016-08-29 10:16] LABS: *BILIRUBIN,URIN NEGATIVE (NEGATIVE); *BLOOD, URINE 3+ (NEGATIVE); *CLARITY,URINE CLOUDY (CLEAR); *COLOR,URINE YELLOW (YELLOW); *KETONES,URINE NEGATIVE (NEGATIVE); *PROTEIN,URINE 2+ (NEGATIVE); *UROBILINOGEN,URINE 0.2 E.U./dl (NORMAL); LEUKOCYTE ESTERASE ,URINE 1+ (NEGATIVE); NITRITE, URINE NEGATIVE (NEGATIVE); UGLUCOSE NEGATIVE (NEGATIVE)
[2016-08-29 10:18] LABS: BAND % (MANUAL) 3 % (0-10); EOSINOPHILS % (MANUAL) 2 % (0-8); LYMPHOCYTES % (MANUAL) 10 % (20-40); MONOCYTES % (MANUAL) 8 % (2-10); NEUTROPHILS % (MANUAL) 77 % (42-75)
[2016-08-29 10:25] LABS: *CREATININE,URINE 129.4 mg/dL (30-125); *URINE TOTAL PROTEIN RANDOM 89.5 mg/dL (<150/24HR)
[2016-08-29 11:00] LABS: BACTERIA,URINE FEW /HPF (NONE SEEN); RBC,URINE 20-50 /HPF (0-3); SQUAMOUS EPITHELIAL CELL,UR FEW /HPF (NONE SEEN); URINE AMORPHOUS URATE MODERATE /HPF
[2016-08-29 12:03] VITALS: BP 97/66
--- NOTE | 2016-08-29 12:55 | NUR ---
OFFERED SCHEDULED PAIN MEDICATION, PT SAYING NO. CALLED DAUGHTER, TOM, TO NOTIFY. PER DAUGHTER, PT SOES NOT WANT TO TAKE PAIN MEDICATION UNLESS ITS NOT TOLERABLE. EXPLAINED THAT IT IS A SCHEDULED MEDICATION SO THE NEXT ONE WONT FOR ANOTHER 6 HOURS. BOTH VERBALIZED UNDERSTANDING. WILL RETURN TO LOCK BOX
[2016-08-29] MEDS: IV NS 1000 ML 1,000 ML IV PRN (14:14)
[2016-08-29] MEDS: ACETAMINOPHEN 325 MG TABLET PO PRN (14:57)
[2016-08-29 16:00] VITALS: BP 117/74
[2016-08-29] MEDS: RIVAROXABAN 10 MG TABLET PO SCH (17:37)
--- NOTE | 2016-08-29 18:42 | NUR ---
pt resting in bed with family at bedside, all safety and comfort measure maintained throughout shift, iv site dressing changed, orozco intact and draining well. pt has not had BM in 3 days, requesting suppository to be given before bed, will endorse to nightman call light in reach
[2016-08-29 19:00] VITALS: BP 100/67
[2016-08-29] MEDS: CEFTRIAXONE 1 G in IV DEXTROSE 5% 50 ML IV SCH (20:59)
[2016-08-29] MEDS ORDERED: MAGNESIUM OXIDE 400 MG TABLET PO SCH (21:00)
--- NOTE | 2016-08-29 21:05 | NUR ---
PT'S A/A/O X3 WITH FAMILY MEMBERS AT THE BEDSIDE;PER FAMILY MEMBER TO BE A CARDIAC CATH LAB RADIOLOGY TECHNOLOGIST PT REQUESTED FOR NORCO 5 MG AND DULCOLAX SUPPO(SEE ORDER) AT THIS TIME;EDUCATED TO PT AND TRANSLATED BY LADARIUS(GRAND-DAUGHTER);PT VERBALIZED UNDERSTANDING AND COOPERATIVE W/ASSISTANCE,UPDATED THE PLAN OF CARE AND REINSERTED IV SITE DUE TO LEAKING AT THIS TIME NOTED.CONTINUED IVF ORDER;F/C CARE PER PROTOCOL.BED ALARM'S ON.
[2016-08-29] MEDS: HYDROCODONE/APAP 5-325MG TABLET PO PRN (21:21)
[2016-08-29] MEDS: BISACODYL 10 MG SUPP.RECT RC PRN (21:21)
--- NOTE | 2016-08-29 23:30 | NUR ---
HAD THE RESULT OF BOWEL MOVEMENT FOR 2-3 TIMES AND FINALLY GOT LARGE BM;PT'S ABLE TO TURN W/MAXIMAL ASSISTANCE.CHANGED DIAPER AND KEPT COMFORT.MAINTAINED IVF ORDER.KEPT COMFORT.CALL-LIGHT WITHIN REACH.
[2016-08-30] MEDS: ACETAMINOPHEN 325 MG TABLET PO PRN ×2 (02:45→08:26)
[2016-08-30] MEDS: HYDROCODONE/APAP 5-325MG TABLET PO PRN ×3 (03:20→23:11)
--- NOTE | 2016-08-30 03:20 | NUR ---
@02:45;PT C/O HEADACHE & HOT RECHECKED TEMP'S 98.8;ASSISTED FOR SPONGE BATH AND GAVE TYLENOL 650 MG PO X1;REPOSITION@ 03:20 PT'S MOVING ON BED AND C/O LEFT LEG PAIN;NORCO 5 MG PO X1 TO PT REQUEST;ASSISTED TO REPOSITION.CONTINUED MONITORING TO PT.BED ALARM'S ON.
[2016-08-30] MEDS: IV NS 1000 ML 1,000 ML IV PRN (03:40)
[2016-08-30 04:12] VITALS: BP 103/63
--- NOTE | 2016-08-30 04:30 | NUR ---
ASSISTED PT FOR ICE WATER REQUEST;REPOSITION TO PT AGAIN DUE TO PT C/O UNCOMFORTABLE WITH SEMI-CUNHA'S POSITION;PT STATED THAT SHE FELT BETTER.KEPT COMFORT.CALL-LIGHT WITHIN REACH.
[2016-08-30] MEDS: VANCOMYCIN FOR PO/GT/NG USE PO SCH ×4 (05:26→23:10)
--- NOTE | 2016-08-30 06:00 | NUR ---
PT'S ABLE TO SLEEP AT THIS TIME.NO DISTRESS NOTED IN THE SHIFT.PT'S COOPERATIVE W/ASSISTANCE.NO INFILTRATION AT THE IV SITE NOTED.F/C'S INTACT.KEPT CALL-LIGHT WITHIN REACH.
[2016-08-30] MEDS: PANTOPRAZOLE SODIUM 40 MG TABLET.DR PO SCH (06:19)
[2016-08-30 07:02] LABS: THYROID STIMULATING HORMONE 0.789 mIU/mL (0.358-3.740)
[2016-08-30 07:08] LABS: BASOPHILS # (AUTO) 0.1 K/uL (0.0-8.0); BASOPHILS % (AUTO) 0.5 % (0.0-2.0); EOSINOPHILS # (AUTO) 0.3 K/uL (0.0-0.7); EOSINOPHILS % (AUTO) 2.3 % (0.0-7.0); HEMATOCRIT 26.3 % (37-47); HEMOGLOBIN 8.4 G/DL (12.0-16.0); LYMPHOCYTES # (AUTO) 1.4 K/UL (0.8-4.8); LYMPHOCYTES % (AUTO) 10.6 % (20.5-51.5); MEAN CORPUSCULAR HEMOGLOBIN 25.2 UUG (27.0-31.0); MEAN CORPUSCULAR HGB CONC 32 g/dL (32.0-37.0); MEAN CORPUSCULAR VOLUME 78.5 FL (81.0-99.0); MONOCYTES % (AUTO) 7.5 % (0.0-11.0); NEUTROPHILS # (AUTO) 10.1 K/UL (1.8-8.9); NEUTROPHILS % (AUTO) 79.1 % (38.5-71.5); RED BLOOD CELL COUNT(AUTO) 3.35 MIL/UL (4.2-5.4); WHITE BLOOD COUNT (AUTO) 12.9 K/UL (4.0-11.2)
[2016-08-30 07:09] LABS: ALANINE AMINOTRANSFERASE 24 U/L (14-59); ALKALINE PHOSPHATASE 138 U/L (50-136); ASPARTATE AMINOTRANSFERASE 23 U/L (15-37); BILIRUBIN,TOTAL 0.2 mg/dL (0.2-1.0); CARBON DIOXIDE 26 mmol/L (21-32); CHLORIDE 94 mmol/L (98-107); CREATINE KINASE, TOTAL 26 U/L (26-192); CREATININE 1.1 mg/dL (0.6-1.3); GLUCOSE 55 mg/dL (74-106); MAGNESIUM 2.1 mg/dL (1.8-2.4); POTASSIUM 4.2 mmol/L (3.5-5.1); TOTAL PROTEIN, SERUM 6.5 g/dL (6.4-8.2); UREA NITROGEN, BLOOD 36 mg/dL (7-18)
[2016-08-30 07:32] LABS: URIC ACID 7.1 mg/dL (2.6-6.0)
--- NOTE | 2016-08-30 08:00 | NUR ---
AWAKE ALERT COOPERATE WELL NO SOB OR PAIN CONTINUE IVF ON FALL PRECAUTION BED ALARM ON AND CALL CHARLES IN REACH LEFT LEG STILL SWELLING KEEP UP ON PILLOW AND LT HIP INCISION DRY CLEAN WITH STERI STRIP INPLACE
[2016-08-30] MEDS: FUROSEMIDE 20 MG TABLET PO SCH (08:26)
[2016-08-30] MEDS: FERROUS SULFATE 325 MG TABEC PO SCH ×2 (08:26→16:25)
[2016-08-30] MEDS: DOCUSATE SODIUM 100 MG CAPSULE PO SCH (08:26)
[2016-08-30 10:24] LABS: PLATELET COUNT (AUTO) 631 K/UL (150-450)
--- NOTE | 2016-08-30 11:00 | NUR ---
OOB AMBULATE WITH PT DOING WELL FAMILY AT BEDSIDE NO PAIN
[2016-08-30 11:13] VITALS: BP 107/68
--- NOTE | 2016-08-30 12:00 | NUR ---
DR HAMPTON WAS INFORM OF MORE SWELLING ON LEFT LEG AND KEEP UP ON PILLOW NEUROVASCULAR WNL
[2016-08-30 15:08] VITALS: BP 113/74
--- NOTE | 2016-08-30 17:00 | NUR ---
DR MONTALVO SEEN PATIENT AND NEW ORDER FOR LAB IN AM
[2016-08-30] MEDS: RIVAROXABAN 10 MG TABLET PO SCH (17:09)
--- NOTE | 2016-08-30 17:30 | NUR ---
HEMODYNAMIC STATUS STABLE NO ACUTE DISTRESS NO SOB ,PAIN UNDER CONTROL SAFETY MEASURE PROVIDED CALL CHARLES IN REACH
[2016-08-30] MEDS ORDERED: HEPARIN/D5W DRIP 500 ML IV PRN (18:15)
--- NOTE | 2016-08-30 19:30 | NUR ---
PT RECEIVED IN BED, AWAKE. A/OX4. DAUGHTER AT BEDSIDE. PT IS MAURITANIAN SPEAKING, IN NEED OF COMPUTER METEOROLOGIST. V/S STABLE. NO SIGNS OF ACUTE DISTRESS. NO COMPLAINTS OF PAIN AT THIS TIME. IVF INFUSING. YANEZ CATHETER PATENT. LEFT LEG ELEVATED ON TWO PILLOWS. SAFETY MEASURES IMPLEMENTED. CALL LIGHT WITHIN REACH. WILL CONTINUE TO MONITOR.
[2016-08-30 20:00] VITALS: BP 129/73
[2016-08-30] MEDS: CEFTRIAXONE 1 G in IV DEXTROSE 5% 50 ML IV SCH (21:04)
[2016-08-31] MEDS: ZOLPIDEM 5 MG TABLET PO PRN (00:53)
[2016-08-31] MEDS ORDERED: ZOLPIDEM 5 MG TABLET ONE (00:54)
[2016-08-31] MEDS: ACETAMINOPHEN 325 MG TABLET PO PRN (01:50)
[2016-08-31 04:00] VITALS: BP 131/86
[2016-08-31] MEDS: VANCOMYCIN FOR PO/GT/NG USE PO SCH ×3 (05:53→18:18)
[2016-08-31] MEDS: HYDROCODONE/APAP 5-325MG TABLET PO PRN ×2 (05:53→12:21)
[2016-08-31] MEDS: IV NS 1000 ML 1,000 ML IV PRN ×2 (05:58→15:37)
[2016-08-31] MEDS: PANTOPRAZOLE SODIUM 40 MG TABLET.DR PO SCH (06:01)
--- NOTE | 2016-08-31 06:01 | NUR ---
END OF SHIFT NOTES. PT SLEPT INTERMITTENTLY THROUGHOUT SHIFT. PT NEEDS ATTENDED. V/S STABLE. NO SIGNS OF ACUTE DISTRESS. PT COMPLAINTS OF PAIN. PAIN MED ADMINISTERED ORDERED. PER PHONE CALL WITH DAUGHTER. PT IS RESTLESS UNABLE TO SLEEP. AMBIEN ADMINISTERED ORDERED. IVF INFUSING. ABDUCTOR PILLOW REMAINS IN PLACE. BILATERAL LEGS ELEVATED. SAFETY MAINTAINED. CALL LIGHT WITHIN REACH.
[2016-08-31 07:12] LABS: MAGNESIUM 1.7 mg/dL (1.8-2.4); PHOSPHOROUS 3.4 mg/dL (2.5-4.9)
[2016-08-31 07:20] LABS: IRON, SERUM 22 ug/dL (50-175)
[2016-08-31 07:21] LABS: THYROID STIMULATING HORMONE 1.188 mIU/mL (0.358-3.740)
[2016-08-31 07:28] LABS: ALANINE AMINOTRANSFERASE 31 U/L (14-59); ALKALINE PHOSPHATASE 129 U/L (50-136); ASPARTATE AMINOTRANSFERASE 23 U/L (15-37); BILIRUBIN,TOTAL 0.2 mg/dL (0.2-1.0); CARBON DIOXIDE 26 mmol/L (21-32); CHLORIDE 97 mmol/L (98-107); CREATININE 0.9 mg/dL (0.6-1.3); FERRITIN 112 ng/mL (8-252); GLUCOSE 58 mg/dL (74-106); POTASSIUM 3.9 mmol/L (3.5-5.1); TOTAL PROTEIN, SERUM 6.6 g/dL (6.4-8.2); UREA NITROGEN, BLOOD 25 mg/dL (7-18)
[2016-08-31 07:29] LABS: BASOPHILS % (AUTO) 0.1 % (0.0-2.0); EOSINOPHILS # (AUTO) 0.4 K/uL (0.0-0.7); EOSINOPHILS % (AUTO) 3.5 % (0.0-7.0); HEMATOCRIT 26.8 % (37-47); HEMOGLOBIN 8.5 G/DL (12.0-16.0); LYMPHOCYTES # (AUTO) 1.8 K/UL (0.8-4.8); LYMPHOCYTES % (AUTO) 15.6 % (20.5-51.5); MEAN CORPUSCULAR HGB CONC 32 g/dL (32.0-37.0); MEAN CORPUSCULAR VOLUME 78.3 FL (81.0-99.0); MONOCYTES % (AUTO) 8.9 % (0.0-11.0); NEUTROPHILS # (AUTO) 8.1 K/UL (1.8-8.9); NEUTROPHILS % (AUTO) 71.9 % (38.5-71.5); PLATELET COUNT (AUTO) 706 K/UL (150-450); RED BLOOD CELL COUNT(AUTO) 3.42 MIL/UL (4.2-5.4); WHITE BLOOD COUNT (AUTO) 11.3 K/UL (4.0-11.2)
--- NOTE | 2016-08-31 07:30 | NUR ---
RECEIVED PATIENT ON BED,MADE COMFORTABLE. BREAKFAST SERVED.ORAL CARE PROVIDED.
[2016-08-31] MEDS: FUROSEMIDE 20 MG TABLET PO SCH (08:32)
[2016-08-31] MEDS: FERROUS SULFATE 325 MG TABEC PO SCH ×2 (08:33→16:41)
[2016-08-31] MEDS: DOCUSATE SODIUM 100 MG CAPSULE PO SCH (08:33)
--- NOTE | 2016-08-31 10:15 | NUR ---
FAMILY AT BEDSIDE, SUPPORTIVE OF PATIENT CARE. DR Avalos-Brown aware of sruthi result 08/25/16. no new order.
--- NOTE | 2016-08-31 10:32 | NUR ---
stool for ob sent to lab.
[2016-08-31 12:00] VITALS: BP 126/73
--- NOTE | 2016-08-31 12:09 | NUR ---
seen by dr newsome, made order and carried out. no hematoma noted on left hip incision
[2016-08-31 12:40] LABS: *OCCULT BLOOD STOOL POSITIVE (NEGATIVE)
--- NOTE | 2016-08-31 13:34 | NUR ---
patient wanted to be back on her back, made aware repositioning q 2 hours , will reinforce turning .
[2016-08-31] MEDS ORDERED: SOD FERRIC GLUC COMPLX/SUCROSE 125 MG in IV NORMAL SALINE 100 ML IV SCH (14:00)
[2016-08-31] MEDS ORDERED: MAGNESIUM OXIDE 400 MG TABLET PO ONE (14:00)
--- NOTE | 2016-08-31 14:14 | NUR ---
dr beth in , saw patient, made order and carried out. will sign consent when daughter visits.
--- NOTE | 2016-08-31 14:45 | NUR ---
seen by PT , up chair x 40 mins then back to bed as requested. tolerated up chair . patient good with transfer with coaching.
[2016-08-31 16:00] VITALS: BP 111/71
[2016-08-31 16:02] VITALS: BP 148/62
[2016-08-31] MEDS: HEPARIN/D5W DRIP 500 ML IV PRN (18:45)
--- NOTE | 2016-08-31 18:58 | NUR ---
family at bedside, supportive of patient care. aware of plan of care done today wants to make sure pt turned q 2 hours and will message to relay to next shift, patient denies discomfort , happy with family visit. no bleeding noted at this . discussed plan for colonoscopy and egd, wants to defer,will notify dr beth in am.
--- NOTE | 2016-08-31 19:29 | NUR ---
gets food from home ,appetite fair
--- NOTE | 2016-08-31 19:53 | NUR ---
PATIENT ALERT AND AWAKE, LYING ON BED. NO FACIAL GRIMACES SHOWING ANY PAIN OR DISCOMFORT NOTED. [place] ON AIR MATTRESS. INCISION ON LEFT HIP STILL SWOLLEN. HEPARIN AND IV FLUID INFUSING ORDERED. WILL CONTINUE TO MONITOR.
[2016-08-31 20:00] VITALS: BP 108/65
--- NOTE | 2016-08-31 21:00 | NUR ---
REPOSTIONED Q 2 HR.
--- NOTE | 2016-08-31 21:30 | NUR ---
PATIENT HAS LARGE BM, BLACK IN COLOR. SPECIMEN SEND TO LAB FRO STOOL OB
[2016-08-31] MEDS: CEFTRIAXONE 1 G in IV DEXTROSE 5% 50 ML IV SCH (21:39)
--- NOTE | 2016-09-01 | NUR ---
CONTINUE REPOSITIONING EVERY 2 HRS. BLOOD WAS DRAWN FOR PTT. WAITING FOR THE RESULT
[2016-09-01] MEDS: HYDROCODONE/APAP 5-325MG TABLET PO PRN ×3 (00:01→21:19)
[2016-09-01] MEDS: VANCOMYCIN FOR PO/GT/NG USE PO SCH ×3 (00:02→12:06)
[2016-09-01] MEDS: ZOLPIDEM 5 MG TABLET PO PRN (00:02)
--- NOTE | 2016-09-01 01:00 | NUR ---
PTT RESULT NOTED 45.4. INCREASED MARIEL HEARIN RATE 200 UNITS SIMON RECOMMENDED. WILL CONTINUE TO MONITOR
--- NOTE | 2016-09-01 04:00 | NUR ---
NOTICED IV DISLODGED. NEW IV STARTED ON THE LEFT AND #22 .IVFLUID AND HEPARIN INFUSING DIRECTED
[2016-09-01] MEDS: IV NS 1000 ML 1,000 ML IV PRN ×2 (04:25→17:52)
[2016-09-01 05:12] VITALS: BP 113/72
[2016-09-01] MEDS: PANTOPRAZOLE SODIUM 40 MG TABLET.DR PO SCH (06:05)
--- NOTE | 2016-09-01 06:37 | NUR ---
PATIENT HAD 2 LARGE BM DURING THE SHIFT. SPECIMEN SENT OT LAB FOR OB. HEPARIN INFUSING AT 18OO UNITS /HR. REPOSITIONED FREQUENTLY.
[2016-09-01 07:02] LABS: ALANINE AMINOTRANSFERASE 26 U/L (14-59); ALKALINE PHOSPHATASE 124 U/L (50-136); ASPARTATE AMINOTRANSFERASE 25 U/L (15-37); BILIRUBIN,TOTAL 0.2 mg/dL (0.2-1.0); CARBON DIOXIDE 23 mmol/L (21-32); CHLORIDE 99 mmol/L (98-107); CREATININE 0.7 mg/dL (0.6-1.3); GLUCOSE 58 mg/dL (74-106); POTASSIUM 3.3 mmol/L (3.5-5.1); TOTAL PROTEIN, SERUM 6.5 g/dL (6.4-8.2); UREA NITROGEN, BLOOD 15 mg/dL (7-18)
[2016-09-01 07:10] LABS: BASOPHILS # (AUTO) 0.1 K/uL (0.0-8.0); BASOPHILS % (AUTO) 1.2 % (0.0-2.0); EOSINOPHILS # (AUTO) 0.3 K/uL (0.0-0.7); EOSINOPHILS % (AUTO) 3.1 % (0.0-7.0); HEMATOCRIT 26.6 % (37-47); HEMOGLOBIN 8.7 G/DL (12.0-16.0); LYMPHOCYTES # (AUTO) 1.7 K/UL (0.8-4.8); LYMPHOCYTES % (AUTO) 15.7 % (20.5-51.5); MEAN CORPUSCULAR HEMOGLOBIN 25.7 UUG (27.0-31.0); MEAN CORPUSCULAR HGB CONC 33 g/dL (32.0-37.0); MONOCYTES # (AUTO) 0.9 K/UL (0.1-1.30); MONOCYTES % (AUTO) 8.5 % (0.0-11.0); NEUTROPHILS # (AUTO) 7.6 K/UL (1.8-8.9); NEUTROPHILS % (AUTO) 71.5 % (38.5-71.5); PLATELET COUNT (AUTO) 705 K/UL (150-450); RED BLOOD CELL COUNT(AUTO) 3.37 MIL/UL (4.2-5.4); WHITE BLOOD COUNT (AUTO) 10.6 K/UL (4.0-11.2)
[2016-09-01 08:07] LABS: *OCCULT BLOOD STOOL POSITIVE (NEGATIVE)
[2016-09-01 08:08] LABS: *IMMUNOGLOBULIN G, SERUM 506 mg/dL (700-1600); IMMUNOGLOBULIN A, SERUM 188 mg/dL (64-422); IMMUNOGLOBULIN M, SERUM 114 mg/dL (26-217)
[2016-09-01] MEDS: FERROUS SULFATE 325 MG TABEC PO SCH ×2 (08:46→18:13)
[2016-09-01] MEDS: FUROSEMIDE 20 MG TABLET PO SCH (08:46)
[2016-09-01] MEDS: HEPARIN/D5W DRIP 500 ML IV PRN ×3 (09:26→23:54)
[2016-09-01] MEDS: DOCUSATE SODIUM 100 MG CAPSULE PO SCH (09:37)
[2016-09-01] MEDS ORDERED: GOLYTELY 4000 ML BOTTLE PO ONE (10:15)
[2016-09-01 12:00] VITALS: BP 105/68
[2016-09-01] MEDS ORDERED: POTASSIUM CHLORIDE 20 MEQ TAB.PRT.SR PO ONE (14:00)
[2016-09-01] MEDS ORDERED: HEPARIN SODIUM,PORCINE 5,000 UNITS/ML VIAL IV PRN ×4 (15:30→15:45)
[2016-09-01 16:00] VITALS: BP 114/75
--- NOTE | 2016-09-01 19:25 | NUR ---
RES IN BED, RESTING COMFORTABLY. RESP IS EVEN AND UNLABORED. NO SOB. NO ACUTE DISTRESS. HEPARIN INFUSING AT 18OO UNITS /HR. NO C/O PAIN OR DISCOMFORT AT THIS TIME. CALL LIGHT WITHIN REACH.
[2016-09-01 20:33] VITALS: BP 106/62
[2016-09-01] MEDS: CEFTRIAXONE 1 G in IV DEXTROSE 5% 50 ML IV SCH (20:40)
[2016-09-02 00:06] VITALS: BP 123/69
[2016-09-02] MEDS: ZOLPIDEM 5 MG TABLET PO PRN (00:19)
[2016-09-02] MEDS: ACETAMINOPHEN 325 MG TABLET PO PRN (00:19)
[2016-09-02 04:06] VITALS: BP 117/66
--- NOTE | 2016-09-02 05:55 | NUR ---
RES IN BED, RESTING COMFORTABLY. RESP IS EVEN AND UNLABORED. NO SOB. NO ACUTE DISTRESS. HEPARIN INFUSING AT 18OO UNITS /HR. IV FLUIDS INFUSING. IV IS PATENT AND INTACT. NO C/O PAIN OR DISCOMFORT AT THIS TIME. CALL LIGHT WITHIN REACH.
[2016-09-02] MEDS: PANTOPRAZOLE SODIUM 40 MG TABLET.DR PO SCH (06:04)
[2016-09-02] MEDS: HYDROCODONE/APAP 5-325MG TABLET PO PRN (06:58)
[2016-09-02 07:51] LABS: CARBON DIOXIDE 25 mmol/L (21-32); CHLORIDE 102 mmol/L (98-107); CREATININE 0.6 mg/dL (0.6-1.3); GLUCOSE 67 mg/dL (74-106); POTASSIUM 3.5 mmol/L (3.5-5.1); UREA NITROGEN, BLOOD 9 mg/dL (7-18)
[2016-09-02 08:52] LABS: BASOPHILS % (AUTO) 0.4 % (0.0-2.0); EOSINOPHILS # (AUTO) 0.4 K/uL (0.0-0.7); EOSINOPHILS % (AUTO) 3.7 % (0.0-7.0); HEMATOCRIT 27.7 % (37-47); HEMOGLOBIN 8.7 G/DL (12.0-16.0); LYMPHOCYTES # (AUTO) 2.5 K/UL (0.8-4.8); LYMPHOCYTES % (AUTO) 20.9 % (20.5-51.5); MEAN CORPUSCULAR HGB CONC 31 g/dL (32.0-37.0); MEAN CORPUSCULAR VOLUME 80.1 FL (81.0-99.0); MONOCYTES # (AUTO) 0.9 K/UL (0.1-1.30); MONOCYTES % (AUTO) 7.5 % (0.0-11.0); NEUTROPHILS # (AUTO) 8.3 K/UL (1.8-8.9); NEUTROPHILS % (AUTO) 67.5 % (38.5-71.5); PLATELET COUNT (AUTO) 802 K/UL (150-450); RED BLOOD CELL COUNT(AUTO) 3.46 MIL/UL (4.2-5.4); WHITE BLOOD COUNT (AUTO) 12.1 K/UL (4.0-11.2)
[2016-09-02] MEDS: DOCUSATE SODIUM 100 MG CAPSULE PO SCH (10:12)
[2016-09-02] MEDS: FUROSEMIDE 20 MG TABLET PO SCH (10:12)
[2016-09-02] MEDS: IV NS 1000 ML 1,000 ML IV PRN (10:12)
[2016-09-02] MEDS: FERROUS SULFATE 325 MG TABEC PO SCH ×2 (10:12→17:31)
--- NOTE | 2016-09-02 11:21 | NUR ---
The patient will be discharged today. Dr. Dixon spoke to the patient's family about discharging to [facility]. The daughter understands that the patient has a bed available at [facility] but they are looking into transferring her to [facility] for her to be under the care of Dr. Cynthia Means [ ]. They have arranged for her transportation going to [facility]. Updated his RN, Ana, on the discharge plan.
[2016-09-02 11:55] VITALS: BP 108/61
[2016-09-02 13:08] LABS: A/G RATIO 0.8 (0.7-1.7); ALBUMIN 2.6 g/dL (2.9-4.4); ALPHA-1-GLOBULIN 0.4 g/dL (0.0-0.4); BETA GLOBULIN 1.1 g/dL (0.7-1.3); GAMMA GLOBULIN 0.5 g/dL (0.4-1.8); GLOBULIN, TOTAL 3.1 g/dL (2.2-3.9); M-SPIKE Not Observed g/dL (Not Observed)
[2016-09-02 13:08] LABS: A/G RATIO 0.9 (0.7-1.7); ALBUMIN 2.6 g/dL (2.9-4.4); ALPHA-1-GLOBULIN 0.5 g/dL (0.0-0.4); BETA GLOBULIN 0.9 g/dL (0.7-1.3); GAMMA GLOBULIN 0.6 g/dL (0.4-1.8); M-SPIKE Not Observed g/dL (Not Observed)
[2016-09-02] MEDS ORDERED: SULF1TAB48 PO (13:41)
[2016-09-02 15:55] VITALS: BP 117/62
--- NOTE | 2016-09-02 16:17 | NUR ---
IN TO DISCUSS PLAN OF CARE WITH PT. AND DAUGHTER. HOME CARE INSTRUCTIONS REVIEWED WITH PT'S. DAUGHTER. DAUGHTER STATES THAT SHE WILL TAKE HER MOM TO [facility] IN [place] [WHERE ALL HER REG. KATARZYNA ARE] STRAIGHT FROM [facility]. YANEZ D/C'D. HEP LOCK TO REMAIN IN PLACE PER DR. HAMPTON. HEPARIN DRIP D/C'D PRIOR TO TRANSPORT. V/S STABLE DR. HAMPTON AWARE OF ALL LABS DRAWN TODAY.
--- NOTE | 2016-09-02 17:31 | NUR ---
PT. DISCHARGED VIA AMBULANCE TO [facility]. PER FAMILY WISHES. BEAU Bean/Flakito
== END 2016-09-02 17:35 | disposition short-term general hospital (02) | DRG 871 ==
LOC: ER 09:49 → TELE 11:14 → MED 08-28 16:05
PROVIDERS: ADMIT Internal Medicine; ATTEND Internal Medicine
DX: A41.9 Sepsis, unspecified organism (principal); N17.0 Acute kidney failure with tubular necrosis; I50.31 Acute diastolic (congestive) heart failure; I82.402 Acute embolism and thrombosis of unspecified deep veins of left lower extremity; N39.0 Urinary tract infection, site not specified; E87.1 Hypo-osmolality and hyponatremia; D62 Acute posthemorrhagic anemia; N17.9 Acute kidney failure, unspecified; B96.20 Unspecified Escherichia coli [E. coli] as the cause of diseases classified elsewhere; Z86.718 Personal history of other venous thrombosis and embolism; Z86.011 Personal history of benign neoplasm of the brain; Z87.01 Personal history of pneumonia (recurrent); E78.5 Hyperlipidemia, unspecified; G89.29 Other chronic pain; E66.01 Morbid (severe) obesity due to excess calories; I27.2 Other secondary pulmonary hypertension; K21.9 Gastro-esophageal reflux disease without esophagitis; I70.0 Atherosclerosis of aorta; Z96.642 Presence of left artificial hip joint; Z90.49 Acquired absence of other specified parts of digestive tract; Z98.890 Other specified postprocedural states; Z79.01 Long term (current) use of anticoagulants; Z86.711 Personal history of pulmonary embolism; M84.459S Pathological fracture, hip, unspecified, sequela; W19.XXXS Unspecified fall, sequela; I11.0 Hypertensive heart disease with heart failure; E66.9 Obesity, unspecified; Z68.38 Body mass index [BMI] 38.0-38.9, adult; D50.9 Iron deficiency anemia, unspecified; R19.5 Other fecal abnormalities; M51.37 Other intervertebral disc degeneration, lumbosacral region; R65.20 Severe sepsis without septic shock; D47.3 Essential (hemorrhagic) thrombocythemia; M19.90 Unspecified osteoarthritis, unspecified site
CPT/HCPCS: 36415; 70030-TC; 71010; 82746; 82784; 83550; 83690; 83735; 83970; 84100; 84155; 84156; 84165; 84300; 84443; 84550; 85025; 85730; 86334; 87040; 87077; 87086; 93005; 97110; 97116; 97161; 97530; A4217; A4663; C1758; J0696; J1170; J1644; J2405; J2916; J3370; J3490; J7030; J7040; J7050; J7060

== ENCOUNTER 2018-10-20 08:38 | Outpatient (CLI) | payer MEDICARE, MEDICAID ==
[~2018-10-20 08:38] MED LIST changes: +BISA10SU11 RC; +DICL100G16 TP; -DOCU50LI PO; +FERR325T28 PO; +FURO-152 PO; +HYDR-4384 PO; -HYDR-552 PO; +MAGN400O6 PO; +MAGN400T6 PO; +NA P133E RC; +PANT40TA4 PO; +RIVA10TA PO; +SULF1TAB48 PO; -WARF2.5T47 PO
[2018-10-20 11:42] LABS: ALANINE AMINOTRANSFERASE 17 U/L (14-59); ALKALINE PHOSPHATASE 64 U/L (50-136); ASPARTATE AMINOTRANSFERASE 12 U/L (15-37); BILIRUBIN,TOTAL 0.4 mg/dL (0.2-1.0); CARBON DIOXIDE 27 mmol/L (21-32); CHLORIDE 100 mmol/L (98-107); CREATININE 0.8 mg/dL (0.6-1.3); GLUCOSE 87 mg/dL (74-106); POTASSIUM 4.1 mmol/L (3.5-5.1); TOTAL PROTEIN, SERUM 7.3 g/dL (6.4-8.2); UREA NITROGEN, BLOOD 19 mg/dL (7-18)
[2018-10-20 11:51] LABS: THYROID STIMULATING HORMONE 1.228 mIU/mL (0.358-3.740)
[2018-10-20 11:54] LABS: BASOPHILS # (AUTO) 0.1 K/uL (0.0-8.0); BASOPHILS % (AUTO) 0.8 % (0.0-2.0); EOSINOPHILS # (AUTO) 0.1 K/uL (0.0-0.7); EOSINOPHILS % (AUTO) 1.4 % (0.0-7.0); HEMATOCRIT 39.5 % (31.2-41.9); HEMOGLOBIN 13.4 g/dL (10.9-14.3); LYMPHOCYTES # (AUTO) 2.4 K/uL (20.0-40.0); LYMPHOCYTES % (AUTO) 26.5 % (20.5-51.5); MEAN CORPUSCULAR HEMOGLOBIN 30.6 uug (24.7-32.8); MEAN CORPUSCULAR HGB CONC 34 g/dL (32.3-35.6); MONOCYTES # (AUTO) 0.7 K/uL (2.0-10.0); MONOCYTES % (AUTO) 7.5 % (0.0-11.0); NEUTROPHILS # (AUTO) 5.8 K/uL (1.8-8.9); NEUTROPHILS % (AUTO) 63.8 % (38.5-71.5); PLATELET COUNT (AUTO) 335 K/uL (179-408); RED BLOOD CELL COUNT(AUTO) 4.39 MIL/uL (3.63-4.92)
[2018-10-21 13:07] LABS: *BILIRUBIN,URIN NEGATIVE (NEGATIVE); *CLARITY,URINE CLOUDY (CLEAR); *COLOR,URINE YELLOW (YELLOW); *KETONES,URINE NEGATIVE (NEGATIVE); LEUKOCYTE ESTERASE ,URINE 2+ (NEGATIVE); NITRITE, URINE NEGATIVE (NEGATIVE); PH,URINE 6.5 (5.0-8.0); UGLUCOSE NEGATIVE (NEGATIVE)
[2018-10-21 13:22] LABS: *BLOOD, URINE TRACE (NEGATIVE)
[2018-10-21 13:23] LABS: BACTERIA,URINE MODERATE /HPF (NONE SEEN); RBC,URINE 0-3 /HPF (0-3); SQUAMOUS EPITHELIAL CELL,UR MODERATE /HPF (NONE SEEN)
== END 2018-10-20 23:59 | disposition home or self-care (01) ==
LOC: XRAY 08:38
PROVIDERS: ATTEND Legal Medicine
DX: M84.48XA Pathological fracture, other site, initial encounter for fracture (principal); M24.3 Pathological dislocation of joint, not elsewhere classified; M81.0 Age-related osteoporosis without current pathological fracture; M19.042 Primary osteoarthritis, left hand; M16.11 Unilateral primary osteoarthritis, right hip; M48.26 Kissing spine, lumbar region; K21.9 Gastro-esophageal reflux disease without esophagitis; Z86.711 Personal history of pulmonary embolism; Z79.899 Other long term (current) drug therapy; Z96.642 Presence of left artificial hip joint
CPT/HCPCS: 72072; 72110; 73130; 73521; 84443; 85025; 85610; 85651; 87086

== ENCOUNTER 2019-09-07 11:49 | Emergency (ER) | payer MEDICARE, OTHER ==
[~2019-09-07] VITALS: Ht 162.6 cm; Wt 95.3 kg
[~2019-09-07 11:49] MED LIST changes: -MAGN400T6 PO; +MAGN400T8 PO
[2019-09-07] MEDS ORDERED: ACETAMINOPHEN ES 500 MG TABLET ONE (12:11)
[2019-09-07] MEDS ORDERED: ACETAMINOPHEN ES 500 MG TABLET PO ONE (12:15)
[2019-09-07] MEDS ORDERED: WARF1TAB2 PO (12:15)
--- NOTE | 2019-09-07 13:48 | NUR ---
Patient discharged to home in stable condition. Written and verbal after care instructions given. Patient verbalizes understanding of instructions. Stressed follow up or return to ER for worsening s/s.
[2019-09-07 13:49] VITALS: BP 122/78
== END 2019-09-07 13:50 | disposition home or self-care (01) ==
LOC: ER 11:49
DX: S42.202A Unspecified fracture of upper end of left humerus, initial encounter for closed fracture (principal); W18.30XA Fall on same level, unspecified, initial encounter; Y93.01 Activity, walking, marching and hiking; Y92.019 Unspecified place in single-family (private) house as the place of occurrence of the external cause; M81.0 Age-related osteoporosis without current pathological fracture; G93.89 Other specified disorders of brain; Z98.42 Cataract extraction status, left eye; Z98.41 Cataract extraction status, right eye; Z96.642 Presence of left artificial hip joint; E78.5 Hyperlipidemia, unspecified; Z87.01 Personal history of pneumonia (recurrent); Z86.03 Personal history of neoplasm of uncertain behavior; Z95.810 Presence of automatic (implantable) cardiac defibrillator; Z79.01 Long term (current) use of anticoagulants; M50.30 Other cervical disc degeneration, unspecified cervical region
CPT/HCPCS: 70450; 72125; 73060; A4663; A9150

== ENCOUNTER 2020-03-09 10:19 | Outpatient (CLI) | payer MEDICARE, OTHER ==
[~2020-03-09 10:19] MED LIST changes: -PANT40TA4 PO; +PANT40TA49 PO; -RIVA10TA PO; -SULF1TAB48 PO; +WARF1TAB2 PO
== END 2020-03-09 23:59 | disposition home or self-care (01) ==
LOC: CT 10:19
PROVIDERS: ATTEND Legal Medicine
DX: G31.9 Degenerative disease of nervous system, unspecified (principal); G93.89 Other specified disorders of brain; I63.9 Cerebral infarction, unspecified; I67.82 Cerebral ischemia; I67.2 Cerebral atherosclerosis
CPT/HCPCS: 70450

== ENCOUNTER 2020-11-04 08:32 | Outpatient (CLI) | payer MEDICARE, OTHER ==
[2020-11-04 09:08] LABS: HEMATOCRIT 40.8 % (31.2-41.9); MEAN CORPUSCULAR HEMOGLOBIN 31.2 uug (24.7-32.8); MEAN CORPUSCULAR VOLUME 91.3 fL (75.5-95.3); PLATELET COUNT (AUTO) 442 K/uL (179-408)
[2020-11-04 09:12] LABS: *BILIRUBIN,URIN NEGATIVE (NEGATIVE); *BLOOD, URINE 1+ (NEGATIVE); *COLOR,URINE YELLOW (YELLOW); *KETONES,URINE NEGATIVE (NEGATIVE); LEUKOCYTE ESTERASE ,URINE 1+ (NEGATIVE); NITRITE, URINE NEGATIVE (NEGATIVE); PH,URINE 6.5 (5.0-8.0); UGLUCOSE NEGATIVE (NEGATIVE)
[2020-11-04 09:16] LABS: *CLARITY,URINE SLIGHTLY CLOUDY (CLEAR)
[2020-11-04 09:17] LABS: BACTERIA,URINE FEW /HPF (NONE SEEN); CALCIUM OXALATE CRYSTALS,UR FEW /HPF (NONE SEEN); SQUAMOUS EPITHELIAL CELL,UR MODERATE /HPF (NONE SEEN)
[2020-11-04 10:07] LABS: THYROID STIMULATING HORMONE 1.256 mIU/mL (0.358-3.740)
[2020-11-04 10:20] LABS: IRON, SERUM 84 ug/dL (50-175)
[2020-11-04 10:45] LABS: ALANINE AMINOTRANSFERASE 15 U/L (14-59); ALKALINE PHOSPHATASE 68 U/L (50-136); ASPARTATE AMINOTRANSFERASE 16 U/L (15-37); BILIRUBIN,TOTAL 0.5 mg/dL (0.2-1.0); CARBON DIOXIDE 28 mmol/L (21-32); CHLORIDE 100 mmol/L (98-107); CHOLESTEROL 234 mg/dL (<200); CREATININE 0.7 mg/dL (0.6-1.3); GLUCOSE 59 mg/dL (74-106); HDL CHOLESTEROL 52 mg/dL (40-60); POTASSIUM 3.4 mmol/L (3.5-5.1); TOTAL PROTEIN, SERUM 7.4 g/dL (6.4-8.2); TRIGLYCERIDES 155 MG/DL (30-150); UREA NITROGEN, BLOOD 18 mg/dL (7-18); URIC ACID 6.7 mg/dL (2.6-6.0)
[2020-11-05 08:06] LABS: TRIIODOTHYRONINE, FREE 3.3 pg/mL (2.0-4.4)
== END 2020-11-04 23:59 | disposition home or self-care (01) ==
LOC: LAB 08:32
PROVIDERS: ATTEND Legal Medicine
DX: E11.22 Type 2 diabetes mellitus with diabetic chronic kidney disease (principal); N18.9 Chronic kidney disease, unspecified; R53.1 Weakness; Z00.00 Encounter for general adult medical examination without abnormal findings
CPT/HCPCS: 36415; 82306; 82746; 83550; 84443; 84481; 84550; 85025; 85610; 85651; 86140; 87086

== ENCOUNTER 2020-11-09 08:40 | Outpatient (CLI) | payer MEDICARE, OTHER ==
--- NOTE | 2020-11-10 09:35 | NUR ---
RESULTS OF CT SCAN WAS FAXED TO DR. CASH, ORDERING
== END 2020-11-09 23:59 | disposition home or self-care (01) ==
LOC: CT 08:40
PROVIDERS: ATTEND Legal Medicine
DX: S22.059A Unspecified fracture of T5-T6 vertebra, initial encounter for closed fracture (principal); S22.069A Unspecified fracture of T7-T8 vertebra, initial encounter for closed fracture; S32.029A Unspecified fracture of second lumbar vertebra, initial encounter for closed fracture; J98.11 Atelectasis; K44.9 Diaphragmatic hernia without obstruction or gangrene; I70.0 Atherosclerosis of aorta; I51.7 Cardiomegaly; E04.9 Nontoxic goiter, unspecified; K86.89 Other specified diseases of pancreas; E27.8 Other specified disorders of adrenal gland; N28.1 Cyst of kidney, acquired; I71.2 Thoracic aortic aneurysm, without rupture; Z90.49 Acquired absence of other specified parts of digestive tract; Z96.642 Presence of left artificial hip joint; X58.XXXA Exposure to other specified factors, initial encounter; Y93.89 Activity, other specified; Y92.89 Other specified places as the place of occurrence of the external cause; Y99.8 Other external cause status
CPT/HCPCS: 71250

== ENCOUNTER 2020-11-15 07:15 | Outpatient (CLI) | payer MEDICARE, OTHER ==
[2020-11-15 09:05] LABS: CREATININE 0.8 mg/dL (0.6-1.3); POTASSIUM 3.3 mmol/L (3.5-5.1)
[2020-11-15] MEDS ORDERED: IOHEXOL 300MG/ML 100 ML INFUS..BTL ONE (09:34)
[2020-11-15] MEDS ORDERED: SWABABLE VALVE TRANSFER SET EA MC ONE (09:34)
[2020-11-15] MEDS ORDERED: IV NORMAL SALINE 250 ML IV ONE (09:34)
[2020-11-17 06:59] LABS: C-PEPTIDE, SERUM 4.9 High
[2020-11-17 07:00] LABS: INSULIN 19.9
[2020-11-17 07:01] LABS: CARBOHYDRATE ANTIGEN, 19-9 <2
== END 2020-11-15 23:59 | disposition home or self-care (01) ==
LOC: LAB 07:15
PROVIDERS: ATTEND Legal Medicine
DX: S32.029D Unspecified fracture of second lumbar vertebra, subsequent encounter for fracture with routine healing (principal); D64.9 Anemia, unspecified; K86.89 Other specified diseases of pancreas; K44.9 Diaphragmatic hernia without obstruction or gangrene; N28.1 Cyst of kidney, acquired; Z90.49 Acquired absence of other specified parts of digestive tract; X58.XXXD Exposure to other specified factors, subsequent encounter
CPT/HCPCS: 74170; 80048; 82150; 82378; 83525; 83690; 84206; 84681; 86301; Q9967; 36415; J7050

== ENCOUNTER 2020-12-14 14:46 | Inpatient (IN) | payer MEDICARE, OTHER ==
[~2020-12-14] VITALS: Ht 157.5 cm; Wt 71.4 kg
--- NOTE | 2020-12-14 19:00 | NUR ---
Admitted an Malian female patient from [facility] via ambulance accompanied by her children. Malian speaking only, children interpreted. Assessment completed with the help of family. Denies any pain or discomforts at this time. Routine admission care done. Plan of care initiated.
[2020-12-14 20:00] VITALS: BP 108/75
[2020-12-14] MEDS ORDERED: Z GUARD REMEDY PASTE 57 GM TUBE TOP PRN (20:00)
[2020-12-14] MEDS ORDERED: ACET-73 PO (21:10)
[2020-12-14] MEDS ORDERED: TIMO5DRO18 OP ×2 (21:10)
[2020-12-14] MEDS ORDERED: BACI1CAP10 PO (21:10)
[2020-12-14] MEDS ORDERED: ZINC220C6 PO (21:10)
[2020-12-14] MEDS ORDERED: DOCU100C36 PO (21:10)
[2020-12-14] MEDS ORDERED: VALS160T2 PO (21:10)
[2020-12-14] MEDS ORDERED: HYDR-3972 PO (21:10)
[2020-12-14] MEDS ORDERED: FOLI-118 PO (21:10)
[2020-12-14] MEDS ORDERED: FERR325T28 PO (21:10)
[2020-12-14] MEDS ORDERED: MAG-55 PO (21:10)
[2020-12-14] MEDS ORDERED: CEFT2FRO2 IV (21:10)
[2020-12-14] MEDS ORDERED: WARF-58 PO (21:10)
[2020-12-14] MEDS ORDERED: POLY17PO4 PO (21:10)
[2020-12-14] MEDS ORDERED: DORZ10DR13 RIGHTEYE (21:10)
[2020-12-14] MEDS ORDERED: CALC-494 PO (21:10)
[2020-12-14] MEDS ORDERED: ESOM40CA PO (21:10)
[2020-12-14] MEDS ORDERED: SORB30SO2 PO (21:10)
[2020-12-14] MEDS ORDERED: DORZ10DR11 RIGHTEYE (21:10)
[2020-12-14] MEDS ORDERED: TIMO5SOL11 OP (21:10)
[2020-12-14] MEDS ORDERED: ENOX40DI SQ (21:10)
[2020-12-14] MEDS ORDERED: SENN-261 PO (21:10)
[2020-12-14] MEDS ORDERED: ASCO-376 PO (21:10)
[2020-12-14] MEDS ORDERED: GLYC-16 RC (21:10)
[2020-12-14] MEDS ORDERED: LATA2.5D2 EACHEYE (21:10)
[2020-12-14] MEDS ORDERED: CALC-883 PO (21:10)
[2020-12-15 04:00] VITALS: BP 110/70
[2020-12-15 08:00] VITALS: BP 126/61
[2020-12-15] MEDS ORDERED: BISACODYL 10 MG SUPP.RECT RC PRN (11:15)
[2020-12-15] MEDS ORDERED: WARFARIN SODIUM 5 MG TABLET PO SCH (12:00)
[2020-12-15] MEDS: ASCORBIC ACID 500 MG TABLET PO SCH (12:10)
[2020-12-15] MEDS: MULTIVITAMINS,THERAPEUTIC TABLET PO SCH (12:10)
[2020-12-15] MEDS: FUROSEMIDE 20 MG TABLET PO SCH (12:10)
[2020-12-15] MEDS: PANTOPRAZOLE SODIUM 40 MG TABLET.DR PO SCH (12:10)
[2020-12-15] MEDS: CEFTRIAXONE 2 G in IV DEXTROSE 5% 100 ML IV SCH (12:11)
[2020-12-15] MEDS: HYDROCODONE/APAP 5-325MG TABLET PO PRN ×2 (12:23→23:00)
[2020-12-15] MEDS: ENOXAPARIN SODIUM 80 MG/0.8 ML DISP.SYRIN SQ SCH ×2 (12:26→21:23)
[2020-12-15 12:38] LABS: MEAN CORPUSCULAR HEMOGLOBIN 31.3 uug (24.7-32.8); MEAN CORPUSCULAR VOLUME 92.8 fL (75.5-95.3); PLATELET COUNT (AUTO) 835 K/uL (179-408)
[2020-12-15 12:44] LABS: CREATININE 0.6 mg/dL (0.6-1.3); POTASSIUM 3.7 mmol/L (3.5-5.1)
[2020-12-15 15:24] VITALS: BP 131/80
[2020-12-15 16:33] LABS: IRON, SERUM 47 ug/dL (50-175)
[2020-12-15 16:46] LABS: FERRITIN 213 ng/mL (8-252)
[2020-12-15] MEDS ORDERED: MIRALAX 17 GM POWD.PACK PO SCH (17:00)
[2020-12-15] MEDS: FERROUS SULFATE 325 MG TABEC PO SCH (17:40)
[2020-12-15] MEDS: CALCIUM CARB/VITAMIN D 500MG-200UNITS TABLET PO SCH (17:40)
[2020-12-15] MEDS: DOCUSATE SODIUM 100 MG CAPSULE PO SCH (17:40)
[2020-12-15] MEDS: DORZOLAMIDE/TIMOLOL OPHT DROP 10 ML BOTTLE RIGHTEYE SCH (17:49)
[2020-12-15 20:00] VITALS: BP 93/59
[2020-12-15] MEDS: TAMSULOSIN HCL 0.4 MG CAP.SR.24H PO SCH (20:43)
[2020-12-15] MEDS: LATANOPROST OPHT DROP 2.5 ML BOTTLE EACHEYE SCH (20:43)
[2020-12-16 04:00] VITALS: BP 130/78
--- NOTE | 2020-12-16 04:00 | NUR ---
Awake alert and oriented x1-2 Confused and disoriented. Admitted for sepsis.dolores also has abdominal surgery which she has bin TRACEE. On pain management, medicated with [place] 1 tab as needed for pain. Relief noted. NPO after MN For CT scan this am. Kept comfortable.
[2020-12-16] MEDS: PANTOPRAZOLE SODIUM 40 MG TABLET.DR PO SCH (06:15)
[2020-12-16 07:46] VITALS: BP 122/70
[2020-12-16 08:02] LABS: HEMATOCRIT 33.7 % (31.2-41.9); MEAN CORPUSCULAR HEMOGLOBIN 31.3 uug (24.7-32.8); MEAN CORPUSCULAR VOLUME 92.6 fL (75.5-95.3); PLATELET COUNT (AUTO) 806 K/uL (179-408)
[2020-12-16] MEDS ORDERED: IV NORMAL SALINE 250 ML IV ONE (08:15)
[2020-12-16] MEDS ORDERED: IOHEXOL 300MG/ML 100 ML INFUS..BTL ONE (08:15)
[2020-12-16] MEDS ORDERED: SWABABLE VALVE TRANSFER SET EA MC ONE (08:15)
[2020-12-16 08:34] LABS: CREATININE 0.6 mg/dL (0.6-1.3); MAGNESIUM 1.8 mg/dL (1.8-2.4); POTASSIUM 3.4 mmol/L (3.5-5.1)
[2020-12-16] MEDS: CALCIUM CARB/VITAMIN D 500MG-200UNITS TABLET PO SCH ×2 (08:56→16:57)
[2020-12-16] MEDS: ZINC SULFATE 220 MG CAPSULE PO SCH (08:56)
[2020-12-16] MEDS: DOCUSATE SODIUM 100 MG CAPSULE PO SCH (08:56)
[2020-12-16] MEDS: FERROUS SULFATE 325 MG TABEC PO SCH (08:56)
[2020-12-16] MEDS: ASCORBIC ACID 500 MG TABLET PO SCH (08:56)
[2020-12-16] MEDS: MULTIVITAMINS,THERAPEUTIC TABLET PO SCH (08:56)
[2020-12-16] MEDS: VALSARTAN 160 MG TABLET PO SCH (08:57)
[2020-12-16] MEDS: ENOXAPARIN SODIUM 80 MG/0.8 ML DISP.SYRIN SQ SCH ×2 (08:58→20:18)
[2020-12-16] MEDS ORDERED: [UNRECOGNIZED DRUG - OTHER] PO SCH (09:00)
[2020-12-16] MEDS ORDERED: FOLIC ACID PO SCH (09:00)
[2020-12-16] MEDS ORDERED: LUTEIN PO SCH (09:00)
[2020-12-16] MEDS ORDERED: MULTIVIT MIN PO SCH (09:00)
[2020-12-16] MEDS ORDERED: ASCORBIC ACID 500 MG PO SCH (09:00)
[2020-12-16] MEDS: HYDROCODONE/APAP 5-325MG TABLET PO PRN ×2 (09:01→16:56)
[2020-12-16] MEDS: FUROSEMIDE 20 MG TABLET PO SCH (09:01)
[2020-12-16] MEDS: DORZOLAMIDE/TIMOLOL OPHT DROP 10 ML BOTTLE RIGHTEYE SCH ×2 (09:03→16:57)
--- NOTE | 2020-12-16 09:56 | NUR ---
CT done, consent was given by daughter Yola for contrast.
[2020-12-16] MEDS ORDERED: POTASSIUM CHLORIDE 20 MEQ TAB.PRT.SR PO ONE (10:45)
--- NOTE | 2020-12-16 11:07 | NUR ---
24 hour urine collection started as ordered.
[2020-12-16] MEDS: CEFTRIAXONE 2 G in IV DEXTROSE 5% 100 ML IV SCH (12:00)
[2020-12-16 15:41] VITALS: BP 115/53
[2020-12-16] MEDS: WARFARIN SODIUM 5 MG TABLET PO SCH (17:03)
--- NOTE | 2020-12-16 18:14 | NUR ---
no distress noted, incision site is clean an dry, kept clean and dry.
[2020-12-16] MEDS: TAMSULOSIN HCL 0.4 MG CAP.SR.24H PO SCH (20:07)
[2020-12-16] MEDS: LATANOPROST OPHT DROP 2.5 ML BOTTLE EACHEYE SCH (20:09)
[2020-12-16] MEDS: FERROUS SULFATE 300 MG/5 ML LIQUID UDC PO SCH (20:10)
[2020-12-16] MEDS: DOCUSATE SODIUM 100 MG/10 ML LIQUID UDC PO SCH (20:10)
[2020-12-16 20:30] VITALS: BP 122/76
--- NOTE | 2020-12-17 00:10 | NUR ---
Received pt awake on bed with no respiratory distress noted, on room air saturating at 95%. No s/sx of pain and discomfort noted. Incisions sites on abdomen remains dry and intact, open to air. IV site on RFA patent and intact, flushed with NS. FC patent and draining well with yellowish urine, on 24-hr urine collection until 1030H. Stool sample to be collected, no BM yet on this shift. All needs attended. Call light placed within reach. Will continue to monitor.
[2020-12-17 04:22] VITALS: BP 126/72
[2020-12-17] MEDS: PANTOPRAZOLE SODIUM 40 MG TABLET.DR PO SCH (06:05)
--- NOTE | 2020-12-17 07:06 | NUR ---
Pt slept intermittently throughout the night. No s/sx of pain and discomfort noted. Incisions sites on abdomen remains dry and intact, open to air. FC patent and draining well with yellowish urine, on 24-hr urine collection until 1030H. No BM this shift, stool sample still to be collected. All needs attended. Call light placed within reach. Frequent visual checks done. Will endorse to next shift for continuity of care.
[2020-12-17 07:09] LABS: HEMATOCRIT 31.8 % (31.2-41.9); MEAN CORPUSCULAR HEMOGLOBIN 31.3 uug (24.7-32.8); MEAN CORPUSCULAR VOLUME 91.6 fL (75.5-95.3); PLATELET COUNT (AUTO) 719 K/uL (179-408)
[2020-12-17 07:48] LABS: BILIRUBIN,DIRECT 0.1 mg/dL (0.0-0.2); BILIRUBIN,TOTAL 0.2 mg/dL (0.2-1.0); CREATININE 0.6 mg/dL (0.6-1.3); POTASSIUM 3.5 mmol/L (3.5-5.1); TOTAL PROTEIN, SERUM 6.1 g/dL (6.4-8.2)
[2020-12-17 08:11] VITALS: BP 137/79
[2020-12-17] MEDS: CALCIUM CARB/VITAMIN D 500MG-200UNITS TABLET PO SCH ×2 (09:16→18:08)
[2020-12-17] MEDS: FUROSEMIDE 20 MG TABLET PO SCH (09:16)
[2020-12-17] MEDS: ZINC SULFATE 220 MG CAPSULE PO SCH (09:16)
[2020-12-17] MEDS: VALSARTAN 160 MG TABLET PO SCH (09:16)
[2020-12-17] MEDS: DOCUSATE SODIUM 100 MG/10 ML LIQUID UDC PO SCH ×2 (09:17→20:27)
[2020-12-17] MEDS: FERROUS SULFATE 300 MG/5 ML LIQUID UDC PO SCH ×2 (09:17→20:28)
[2020-12-17] MEDS: MULTIVITAMINS,THERAPEUTIC TABLET PO SCH (09:17)
[2020-12-17] MEDS: ASCORBIC ACID 500 MG TABLET PO SCH (09:17)
[2020-12-17] MEDS: DORZOLAMIDE/TIMOLOL OPHT DROP 10 ML BOTTLE RIGHTEYE SCH ×2 (09:18→18:09)
[2020-12-17] MEDS: ENOXAPARIN SODIUM 80 MG/0.8 ML DISP.SYRIN SQ SCH ×2 (09:19→20:29)
[2020-12-17] MEDS: CEFTRIAXONE 2 G in IV DEXTROSE 5% 100 ML IV SCH (13:34)
--- NOTE | 2020-12-17 13:34 | NUR ---
INDIVIDUALIZED PLAN OF CARE
[2020-12-17 16:19] VITALS: BP 106/57
[2020-12-17] MEDS: WARFARIN SODIUM 5 MG TABLET PO SCH (18:11)
[2020-12-17 18:22] LABS: *OCCULT BLOOD STOOL NEGATIVE (NEGATIVE)
[2020-12-17] MEDS: HYDROCODONE/APAP 5-325MG TABLET PO PRN (18:31)
[2020-12-17 20:25] VITALS: BP 115/55
[2020-12-17] MEDS: TAMSULOSIN HCL 0.4 MG CAP.SR.24H PO SCH (20:28)
[2020-12-17] MEDS: ACETAMINOPHEN 325 MG TABLET PO PRN (20:30)
[2020-12-17] MEDS: LATANOPROST OPHT DROP 2.5 ML BOTTLE EACHEYE SCH (20:36)
[2020-12-18 04:38] VITALS: BP 121/74
[2020-12-18] MEDS: HYDROCODONE/APAP 5-325MG TABLET PO PRN ×3 (05:55→23:15)
[2020-12-18] MEDS: PANTOPRAZOLE SODIUM 40 MG TABLET.DR PO SCH (06:16)
--- NOTE | 2020-12-18 07:42 | NUR ---
Received patient in bed, resting comfortably. On room air. Denies pain/discomfort. Collier catheter draining well. Abdominal incisions intact, no signs of infection or bleeding noted. Safety measures in place. Will monitor frequently
[2020-12-18 08:13] VITALS: BP 113/94
[2020-12-18] MEDS: ZINC SULFATE 220 MG CAPSULE PO SCH (09:52)
[2020-12-18] MEDS: MULTIVITAMINS,THERAPEUTIC TABLET PO SCH (09:52)
[2020-12-18] MEDS: ASCORBIC ACID 500 MG TABLET PO SCH (09:52)
[2020-12-18] MEDS: FUROSEMIDE 20 MG TABLET PO SCH (09:52)
[2020-12-18] MEDS: CALCIUM CARB/VITAMIN D 500MG-200UNITS TABLET PO SCH ×2 (09:52→17:08)
[2020-12-18] MEDS: DOCUSATE SODIUM 100 MG/10 ML LIQUID UDC PO SCH ×2 (09:54→20:13)
[2020-12-18] MEDS: FERROUS SULFATE 300 MG/5 ML LIQUID UDC PO SCH ×2 (09:54→20:13)
[2020-12-18] MEDS: DORZOLAMIDE/TIMOLOL OPHT DROP 10 ML BOTTLE RIGHTEYE SCH ×2 (09:55→17:14)
[2020-12-18] MEDS: ENOXAPARIN SODIUM 80 MG/0.8 ML DISP.SYRIN SQ SCH ×2 (09:57→20:14)
[2020-12-18] MEDS: VALSARTAN 160 MG TABLET PO SCH (10:02)
[2020-12-18 12:23] VITALS: BP 107/66
[2020-12-18] MEDS: CEFTRIAXONE 2 G in IV DEXTROSE 5% 100 ML IV SCH (13:54)
[2020-12-18 15:53] VITALS: BP 109/66
[2020-12-18] MEDS ORDERED: WARFARIN SODIUM 2.5 MG TABLET PO ONE (17:00)
[2020-12-18] MEDS: WARFARIN SODIUM 5 MG TABLET PO SCH (17:16)
[2020-12-18 20:00] VITALS: BP 110/70
[2020-12-18] MEDS: TAMSULOSIN HCL 0.4 MG CAP.SR.24H PO SCH (20:13)
[2020-12-18] MEDS: LATANOPROST OPHT DROP 2.5 ML BOTTLE EACHEYE SCH (20:13)
[2020-12-19 04:00] VITALS: BP 113/71
[2020-12-19] MEDS: PANTOPRAZOLE SODIUM 40 MG TABLET.DR PO SCH (06:11)
--- NOTE | 2020-12-19 06:34 | NUR ---
Slept well. No complaint presented all night. All needs attended and met. Vital signs stable. Continue care as planned.
[2020-12-19 07:37] VITALS: BP 122/80
[2020-12-19] MEDS: FUROSEMIDE 20 MG TABLET PO SCH (09:00)
[2020-12-19] MEDS: ZINC SULFATE 220 MG CAPSULE PO SCH (09:00)
[2020-12-19] MEDS: DOCUSATE SODIUM 100 MG/10 ML LIQUID UDC PO SCH ×2 (09:00→20:29)
[2020-12-19] MEDS: FERROUS SULFATE 300 MG/5 ML LIQUID UDC PO SCH ×2 (09:00→20:29)
[2020-12-19] MEDS: CALCIUM CARB/VITAMIN D 500MG-200UNITS TABLET PO SCH ×2 (09:00→16:29)
[2020-12-19] MEDS: MULTIVITAMINS,THERAPEUTIC TABLET PO SCH (09:00)
[2020-12-19] MEDS: ASCORBIC ACID 500 MG TABLET PO SCH (09:00)
[2020-12-19] MEDS: DORZOLAMIDE/TIMOLOL OPHT DROP 10 ML BOTTLE RIGHTEYE SCH ×2 (09:00→16:56)
[2020-12-19] MEDS: VALSARTAN 160 MG TABLET PO SCH (09:01)
[2020-12-19] MEDS: ENOXAPARIN SODIUM 80 MG/0.8 ML DISP.SYRIN SQ SCH (09:08)
[2020-12-19 10:34] LABS: HEMATOCRIT 35.3 % (31.2-41.9); MEAN CORPUSCULAR HEMOGLOBIN 31.4 uug (24.7-32.8); MEAN CORPUSCULAR VOLUME 93.4 fL (75.5-95.3); PLATELET COUNT (AUTO) 784 K/uL (179-408)
[2020-12-19] MEDS: CEFTRIAXONE 2 G in IV DEXTROSE 5% 100 ML IV SCH (13:15)
--- NOTE | 2020-12-19 15:00 | NUR ---
Called Dr. Maxwell's office (surgeon) to follow up regarding surgical incision care including bin. Spoke to Janet HUMAN FACTORS ERGONOMIST for Dr. Maxwell. Per HUMAN FACTORS ERGONOMIST remove surgical bin on the abdominal incision site, apply steri-strips and keep open to air. Dr. Brizuela saw patient and agreeable with taking out of surgical bin. All bin removed, applied steri-strips and kept open to air. Surgical incision site is well coaptated, no bleeding or any discharges. Patient denies any pain or discomfort at this time with daughter at bedside.
[2020-12-19 15:04] VITALS: BP 117/61
[2020-12-19] MEDS: HYDROCODONE/APAP 5-325MG TABLET PO PRN (16:49)
[2020-12-19] MEDS: WARFARIN SODIUM 5 MG TABLET PO SCH (16:54)
[2020-12-19 20:00] VITALS: BP 111/70
[2020-12-19] MEDS: TAMSULOSIN HCL 0.4 MG CAP.SR.24H PO SCH (20:28)
[2020-12-19] MEDS: LATANOPROST OPHT DROP 2.5 ML BOTTLE EACHEYE SCH (20:28)
[2020-12-20 04:00] VITALS: BP 111/61
[2020-12-20] MEDS: PANTOPRAZOLE SODIUM 40 MG TABLET.DR PO SCH (06:01)
--- NOTE | 2020-12-20 06:38 | NUR ---
No significant event reported all night. Slept good. No complaint presented. VS stable. Continue care as planned.
[2020-12-20 07:31] VITALS: BP 123/64
[2020-12-20] MEDS: FUROSEMIDE 20 MG TABLET PO SCH (08:17)
[2020-12-20] MEDS: DOCUSATE SODIUM 100 MG CAPSULE PO SCH ×2 (08:17→20:29)
[2020-12-20] MEDS: VALSARTAN 160 MG TABLET PO SCH (08:17)
[2020-12-20] MEDS: FERROUS SULFATE 325 MG TABEC PO SCH ×2 (08:18→20:29)
[2020-12-20] MEDS: CALCIUM CARB/VITAMIN D 500MG-200UNITS TABLET PO SCH ×3 (08:21→16:43)
[2020-12-20] MEDS: ASCORBIC ACID 500 MG TABLET PO SCH (08:22)
[2020-12-20] MEDS: DORZOLAMIDE/TIMOLOL OPHT DROP 10 ML BOTTLE RIGHTEYE SCH ×2 (08:23→16:31)
[2020-12-20] MEDS: MULTIVITAMINS,THERAPEUTIC TABLET PO SCH (08:23)
[2020-12-20] MEDS: ZINC SULFATE 220 MG CAPSULE PO SCH (08:24)
[2020-12-20] MEDS: CEFTRIAXONE 2 G in IV DEXTROSE 5% 100 ML IV SCH (12:52)
--- NOTE | 2020-12-20 15:11 | NUR ---
INTERDISCIPLINARY TEAM CONFERENCE
[2020-12-20 15:54] VITALS: BP 129/46
[2020-12-20] MEDS: HYDROCODONE/APAP 5-325MG TABLET PO PRN (16:29)
[2020-12-20] MEDS: WARFARIN SODIUM 5 MG TABLET PO SCH (16:31)
[2020-12-20 20:00] VITALS: BP 127/78
[2020-12-20] MEDS: LATANOPROST OPHT DROP 2.5 ML BOTTLE EACHEYE SCH (20:28)
[2020-12-20] MEDS: TAMSULOSIN HCL 0.4 MG CAP.SR.24H PO SCH (20:29)
[2020-12-20] MEDS: ACETAMINOPHEN 325 MG TABLET PO PRN (23:43)
--- NOTE | 2020-12-21 00:28 | NUR ---
Received pt awake on bed with no respiratory distress noted, on room air saturating at 98%. No s/sx of pain and discomfort noted. IV site on L wrist patent and intact, flushed with NS. FC patent and draining well with yellowish urine. All needs attended. Call light placed within reach. Will continue to monitor.
[2020-12-21 04:00] VITALS: BP 142/75
[2020-12-21] MEDS: PANTOPRAZOLE SODIUM 40 MG TABLET.DR PO SCH (06:01)
[2020-12-21 07:47] VITALS: BP 102/65
[2020-12-21] MEDS: FUROSEMIDE 20 MG TABLET PO SCH (08:12)
[2020-12-21] MEDS: DOCUSATE SODIUM 100 MG CAPSULE PO SCH ×2 (08:13→20:33)
[2020-12-21] MEDS: DORZOLAMIDE/TIMOLOL OPHT DROP 10 ML BOTTLE RIGHTEYE SCH ×2 (08:13→16:39)
[2020-12-21] MEDS: MULTIVITAMINS,THERAPEUTIC TABLET PO SCH (08:33)
[2020-12-21] MEDS: FERROUS SULFATE 325 MG TABEC PO SCH ×2 (08:33→20:33)
[2020-12-21] MEDS: ASCORBIC ACID 500 MG TABLET PO SCH (08:33)
[2020-12-21] MEDS: ZINC SULFATE 220 MG CAPSULE PO SCH (08:33)
[2020-12-21] MEDS: VALSARTAN 160 MG TABLET PO SCH (08:33)
[2020-12-21] MEDS: CALCIUM CARB/VITAMIN D 500MG-200UNITS TABLET PO SCH ×2 (08:33→16:39)
--- NOTE | 2020-12-21 08:34 | NUR ---
Patient received in bed, awake. A&Ox2. Left wrist 22g intact, no signs of infection noted. Collier draining yellow urine. On room air. Daughter at bedside. Patient refused vitamins, stated "it's too much". Attempted 3x to administer. Safety precautions in place. Call light within reach. Will continue to monitor
[2020-12-21] MEDS: CEFTRIAXONE 2 G in IV DEXTROSE 5% 100 ML IV SCH (13:21)
[2020-12-21 15:25] VITALS: BP 113/68
[2020-12-21] MEDS: HYDROCODONE/APAP 5-325MG TABLET PO PRN (16:40)
[2020-12-21] MEDS: WARFARIN SODIUM 5 MG TABLET PO SCH (16:42)
--- NOTE | 2020-12-21 19:05 | NUR ---
Received patient sleeping in bed. AOx2-3. IV on L wrist gauge 22, intact and patent. With orozco catheter, draining clear yellow urine. Currently on room air. No acute distress noted at this time. Safety and comfort measures initiated. Call light button and bedside table with reach. Will continue to monitor.
[2020-12-21 20:00] VITALS: BP 121/75
[2020-12-21] MEDS: TAMSULOSIN HCL 0.4 MG CAP.SR.24H PO SCH (20:32)
[2020-12-21] MEDS: LATANOPROST OPHT DROP 2.5 ML BOTTLE EACHEYE SCH (20:32)
[2020-12-22 04:00] VITALS: BP 118/63
[2020-12-22] MEDS: PANTOPRAZOLE SODIUM 40 MG TABLET.DR PO SCH (06:34)
[2020-12-22] MEDS: HYDROCODONE/APAP 5-325MG TABLET PO PRN ×2 (06:35→16:48)
--- NOTE | 2020-12-22 07:12 | NUR ---
Patient slept through the night. No acute distress noted at this time. All due medications were given as ordered. Patient denies SOB, chest pain or dizziness, however, patient complained of pain at the incision site. [place] 5-325mg, was given and tolerated well. Abdominal incision is clean and shows no signs of infection. V/S are within normal limits. Safety and comfort measures maintained. Will endorse to day shift nurse.
[2020-12-22 07:42] VITALS: BP 121/70
[2020-12-22] MEDS: FERROUS SULFATE 325 MG TABEC PO SCH ×2 (08:41→20:11)
[2020-12-22] MEDS: FUROSEMIDE 20 MG TABLET PO SCH (08:41)
[2020-12-22] MEDS: DOCUSATE SODIUM 100 MG CAPSULE PO SCH ×2 (08:41→20:12)
[2020-12-22] MEDS: ASCORBIC ACID 500 MG TABLET PO SCH (08:41)
[2020-12-22] MEDS: MULTIVITAMINS,THERAPEUTIC TABLET PO SCH (08:42)
[2020-12-22] MEDS: CALCIUM CARB/VITAMIN D 500MG-200UNITS TABLET PO SCH ×2 (08:42→16:49)
[2020-12-22] MEDS: VALSARTAN 160 MG TABLET PO SCH (08:42)
[2020-12-22] MEDS: ZINC SULFATE 220 MG CAPSULE PO SCH (08:42)
[2020-12-22] MEDS: DORZOLAMIDE/TIMOLOL OPHT DROP 10 ML BOTTLE RIGHTEYE SCH ×2 (08:43→16:50)
[2020-12-22 16:13] VITALS: BP 102/60
[2020-12-22] MEDS: WARFARIN SODIUM 5 MG TABLET PO SCH (16:49)
--- NOTE | 2020-12-22 19:30 | NUR ---
no events noted during shift
[2020-12-22] MEDS: LATANOPROST OPHT DROP 2.5 ML BOTTLE EACHEYE SCH (20:11)
[2020-12-22] MEDS: TAMSULOSIN HCL 0.4 MG CAP.SR.24H PO SCH (20:11)
[2020-12-22 20:45] VITALS: BP 118/41
[2020-12-23 04:46] VITALS: BP 113/75
[2020-12-23] MEDS: PANTOPRAZOLE SODIUM 40 MG TABLET.DR PO SCH (06:03)
--- NOTE | 2020-12-23 06:38 | NUR ---
Pt slept intermittently throughout the night. No s/sx of pain and discomfort noted. FC patent and draining well with yellowish urine. Due medications given and tolerated well. All needs attended. Call light placed within reach. Frequent visual checks done. Will endorse to next shift for continuity of care.
[2020-12-23 07:29] LABS: HEMATOCRIT 35.2 % (31.2-41.9); MEAN CORPUSCULAR HEMOGLOBIN 31.6 uug (24.7-32.8); MEAN CORPUSCULAR VOLUME 93.1 fL (75.5-95.3); PLATELET COUNT (AUTO) 727 K/uL (179-408)
[2020-12-23 08:00] VITALS: BP 115/60
[2020-12-23 08:02] LABS: CREATININE 0.6 mg/dL (0.6-1.3); POTASSIUM 3.3 mmol/L (3.5-5.1)
[2020-12-23] MEDS: DOCUSATE SODIUM 100 MG CAPSULE PO SCH ×2 (08:16→22:06)
[2020-12-23] MEDS: FERROUS SULFATE 325 MG TABEC PO SCH ×2 (08:16→22:06)
[2020-12-23] MEDS: VALSARTAN 160 MG TABLET PO SCH (08:16)
[2020-12-23] MEDS: FUROSEMIDE 20 MG TABLET PO SCH (08:16)
[2020-12-23] MEDS: ZINC SULFATE 220 MG CAPSULE PO SCH (08:17)
[2020-12-23] MEDS: ASCORBIC ACID 500 MG TABLET PO SCH (08:17)
[2020-12-23] MEDS: CALCIUM CARB/VITAMIN D 500MG-200UNITS TABLET PO SCH ×2 (08:17→16:05)
[2020-12-23] MEDS: DORZOLAMIDE/TIMOLOL OPHT DROP 10 ML BOTTLE RIGHTEYE SCH ×2 (08:17→16:06)
[2020-12-23] MEDS: MULTIVITAMINS,THERAPEUTIC TABLET PO SCH (08:17)
[2020-12-23] MEDS ORDERED: POTASSIUM CHLORIDE 20 MEQ TAB.PRT.SR PO ONE (10:00)
[2020-12-23 10:07] LABS: EOSINOPHILS % (MANUAL) 1 % (0-8); LYMPHOCYTES % (MANUAL) 52 % (20-40); MONOCYTES % (MANUAL) 10 % (2-10); MYELOCYTES % 1 % (0-0); NEUTROPHILS % (MANUAL) 36 % (42-75)
[2020-12-23 15:47] VITALS: BP 139/72
[2020-12-23] MEDS: HYDROCODONE/APAP 5-325MG TABLET PO PRN (16:02)
[2020-12-23] MEDS: WARFARIN SODIUM 5 MG TABLET PO SCH (16:03)
--- NOTE | 2020-12-23 19:08 | NUR ---
Report received form AMRN in front of pt's room. At bedside for assessment. Pt seems confused, however AMRN states that pt is mostly lucid but only appears confused due to the language barrier. I attempted to speak Yoruba with pt, but Pt is Tajik speaking only. Pt has good color, temp and appearance. VSS, PE WNL, pt has good pulses x4ext and strong and equal diesel engine assembler strength bilat. Lungs clear, RRR without g/m/r/e. Pt is clean and dry and in pos of comfort. Denies any pain, nausea, dizziness, SOB or discomfort. No s/sx of distress present.
--- NOTE | 2020-12-23 19:38 | NUR ---
none events noted during shift, patient tolerated PT, OT services well
[2020-12-23 20:09] VITALS: BP 117/79
[2020-12-23] MEDS: TAMSULOSIN HCL 0.4 MG CAP.SR.24H PO SCH (22:06)
[2020-12-23] MEDS: LATANOPROST OPHT DROP 2.5 ML BOTTLE EACHEYE SCH (22:06)
--- NOTE | 2020-12-23 22:10 | NUR ---
SILVER MINER BLASTING with pt changing soiled diaper and providing pericare. Pt clean and dry with fresh diaper, in pos of comfort resting quietly.
[2020-12-24 04:09] VITALS: BP 109/57
--- NOTE | 2020-12-24 06:20 | NUR ---
SURFACE GRINDING MACHINE HAND at bedside to check diaper. Pt is clean and dry and repositioned in pos of comfort. AM meds administered PO without difficulty. Pt slept straight thru the night without waking up and asking for pain meds. Pt allowed to go back to sleep. Pt resting comfortably without any complaints. VSS, PE WNL. No s/sx of distress present.
--- NOTE | 2020-12-24 06:25 | NUR ---
OTOLOGIST emptied orozco collection bag. approx 700cc clear yellow output. Pt clean and dry.
[2020-12-24] MEDS: PANTOPRAZOLE SODIUM 40 MG TABLET.DR PO SCH (06:51)
[2020-12-24 07:50] VITALS: BP 115/61
[2020-12-24 08:37] LABS: CREATININE 0.6 mg/dL (0.6-1.3); POTASSIUM 3.4 mmol/L (3.5-5.1)
[2020-12-24] MEDS: FUROSEMIDE 20 MG TABLET PO SCH (08:44)
[2020-12-24] MEDS: DORZOLAMIDE/TIMOLOL OPHT DROP 10 ML BOTTLE RIGHTEYE SCH ×2 (08:44→17:04)
[2020-12-24] MEDS: DOCUSATE SODIUM 100 MG CAPSULE PO SCH ×2 (08:44→21:08)
[2020-12-24] MEDS: VALSARTAN 160 MG TABLET PO SCH (08:45)
[2020-12-24] MEDS: CALCIUM CARB/VITAMIN D 500MG-200UNITS TABLET PO SCH ×2 (08:45→17:00)
[2020-12-24] MEDS: MULTIVITAMINS,THERAPEUTIC TABLET PO SCH (08:45)
[2020-12-24] MEDS: ASCORBIC ACID 500 MG TABLET PO SCH (08:45)
[2020-12-24] MEDS: FERROUS SULFATE 325 MG TABEC PO SCH ×2 (08:45→21:08)
[2020-12-24] MEDS: ZINC SULFATE 220 MG CAPSULE PO SCH (08:46)
--- NOTE | 2020-12-24 09:15 | NUR ---
Patient received resting in bed, daughter at bedside. East Timorese speaking, understands minimal Welsh. Per daughter, pt is alert & oriented this AM. On room air, VSS. Collier draining clear yellow urine. No signs of acute distress noted. AM care provided. Pt refused vitamins. Attempted to administer 3x. States "It's too much". Safety measures in place. Call light within reach. Will continue to monitor
[2020-12-24] MEDS ORDERED: POTASSIUM CHLORIDE 20 MEQ TAB.PRT.SR PO ONE (10:00)
[2020-12-24] MEDS: HYDROCODONE/APAP 5-325MG TABLET PO PRN ×2 (17:05→23:55)
[2020-12-24] MEDS: WARFARIN SODIUM 5 MG TABLET PO SCH (17:08)
[2020-12-24 17:35] VITALS: BP 121/49
--- NOTE | 2020-12-24 19:30 | NUR ---
RECEIVED PT AWAKE, ALERT AND ORIENTEDX3. PT IN NO ACUTE DISTRESS. IV INTACT. YANEZ INTACT. SAFETY AND COMFORT PROVIDED. WILL CONTINUE TO MONITOR.
[2020-12-24 20:00] VITALS: BP 104/74
[2020-12-24] MEDS: TAMSULOSIN HCL 0.4 MG CAP.SR.24H PO SCH (21:08)
[2020-12-24] MEDS: LATANOPROST OPHT DROP 2.5 ML BOTTLE EACHEYE SCH (21:23)
[2020-12-25] MEDS: ACETAMINOPHEN 325 MG TABLET PO PRN ×2 (03:46→21:34)
--- NOTE | 2020-12-25 05:45 | NUR ---
PT SLEPT INTERMITTENTLY. PT IN NO ACUTE DISTRESS. PRESCRIBED MEDICATION GIVEN AND PT TOLERATED IT WELL. PT IV AND YANEZ INTACT.SAFETY AND COMFORT PROVIDED. ALL NEEDS ARE MET.PRN MEDICATIONS GIVEN. WILL ENDORSE TO INCOMING NURSE FOR CONTINUITY OF CARE.
[2020-12-25] MEDS: PANTOPRAZOLE SODIUM 40 MG TABLET.DR PO SCH (06:18)
[2020-12-25] MEDS: HYDROCODONE/APAP 5-325MG TABLET PO PRN ×2 (06:31→16:45)
--- NOTE | 2020-12-25 06:35 | NUR ---
0631h [place] prn given for 8/10 pain scale. Pt tolerated it well.Will endorse to incoming nurse.
[2020-12-25 06:45] LABS: HEMATOCRIT 35.3 % (31.2-41.9); MEAN CORPUSCULAR VOLUME 94.5 fL (75.5-95.3); PLATELET COUNT (AUTO) 648 K/uL (179-408)
[2020-12-25 06:59] LABS: CARBON DIOXIDE 29 mmol/L (21-32); CHLORIDE 97 mmol/L (98-107); CREATININE 0.7 mg/dL (0.6-1.3); GLUCOSE 116 mg/dL (74-106); POTASSIUM 3.4 mmol/L (3.5-5.1); UREA NITROGEN, BLOOD 11 mg/dL (7-18)
[2020-12-25 08:00] VITALS: BP 123/75
[2020-12-25] MEDS: MULTIVITAMINS,THERAPEUTIC TABLET PO SCH (09:00)
[2020-12-25] MEDS: FERROUS SULFATE 325 MG TABEC PO SCH ×2 (09:00→20:47)
[2020-12-25] MEDS: ZINC SULFATE 220 MG CAPSULE PO SCH (09:00)
[2020-12-25] MEDS: ASCORBIC ACID 500 MG TABLET PO SCH (09:00)
[2020-12-25] MEDS: CALCIUM CARB/VITAMIN D 500MG-200UNITS TABLET PO SCH ×2 (09:00→16:43)
[2020-12-25] MEDS: VALSARTAN 160 MG TABLET PO SCH (09:07)
[2020-12-25] MEDS: DOCUSATE SODIUM 100 MG CAPSULE PO SCH ×2 (09:07→20:46)
[2020-12-25] MEDS: DORZOLAMIDE/TIMOLOL OPHT DROP 10 ML BOTTLE RIGHTEYE SCH ×2 (09:08→16:49)
[2020-12-25] MEDS: FUROSEMIDE 20 MG TABLET PO SCH (09:11)
[2020-12-25] MEDS ORDERED: POTASSIUM CHLORIDE 20 MEQ TAB.PRT.SR PO ONE (09:15)
[2020-12-25 16:00] VITALS: BP 105/74
[2020-12-25] MEDS: WARFARIN SODIUM 5 MG TABLET PO SCH (16:47)
[2020-12-25 20:00] VITALS: BP 104/70
[2020-12-25] MEDS: TAMSULOSIN HCL 0.4 MG CAP.SR.24H PO SCH (20:47)
[2020-12-25] MEDS: LATANOPROST OPHT DROP 2.5 ML BOTTLE EACHEYE SCH (20:47)
[2020-12-26] MEDS: HYDROCODONE/APAP 5-325MG TABLET PO PRN ×2 (00:05→16:56)
--- NOTE | 2020-12-26 02:15 | NUR ---
Sleeping during initial rounds. No s/s of respiratory distress. Safety measures and fall prevention maintained. Continue care as planned.
[2020-12-26 04:21] VITALS: BP 157/79
[2020-12-26] MEDS: PANTOPRAZOLE SODIUM 40 MG TABLET.DR PO SCH (06:10)
--- NOTE | 2020-12-26 06:38 | NUR ---
Slept lightly despite Tylenol and Knapp given. Kept saying "tomorrow, tomorrow, tomorrow". All needs attended and met. Continue care as planned.
[2020-12-26 08:00] VITALS: BP 141/49
[2020-12-26] MEDS: MULTIVITAMINS,THERAPEUTIC TABLET PO SCH (09:00)
[2020-12-26] MEDS: ASCORBIC ACID 500 MG TABLET PO SCH (09:00)
[2020-12-26] MEDS: ZINC SULFATE 220 MG CAPSULE PO SCH (09:00)
[2020-12-26] MEDS: CALCIUM CARB/VITAMIN D 500MG-200UNITS TABLET PO SCH ×2 (09:00→16:57)
[2020-12-26] MEDS: FERROUS SULFATE 325 MG TABEC PO SCH ×2 (09:00→20:03)
[2020-12-26] MEDS: VALSARTAN 160 MG TABLET PO SCH (09:11)
[2020-12-26] MEDS: DOCUSATE SODIUM 100 MG CAPSULE PO SCH ×2 (09:11→20:03)
[2020-12-26] MEDS: FUROSEMIDE 20 MG TABLET PO SCH (09:11)
[2020-12-26] MEDS: DORZOLAMIDE/TIMOLOL OPHT DROP 10 ML BOTTLE RIGHTEYE SCH ×2 (09:12→16:56)
[2020-12-26] MEDS: ENSURE ENLIVE (VAN) 240 ML LIQUID PO SCH (09:12)
[2020-12-26 16:00] VITALS: BP 137/74
--- NOTE | 2020-12-26 17:30 | NUR ---
Daughter at bedside. Patient pleasant and cooperative. PRN Matthews administered for pain. Collier catheter draining well. Seen by Dr. Quinones. Safety measures in place. Will continue to monitor
[2020-12-26 20:00] VITALS: BP 134/55
--- NOTE | 2020-12-26 20:00 | NUR ---
AWAKE SPEAKS PERSIAN,UNABLE TO UNDERSTAND DOESNT WANT THE DINNER TRAY , TOOK ALL MEDICATIONS. RESTING COMFORTABLY
[2020-12-26] MEDS: TAMSULOSIN HCL 0.4 MG CAP.SR.24H PO SCH (20:03)
[2020-12-26] MEDS: LATANOPROST OPHT DROP 2.5 ML BOTTLE EACHEYE SCH (20:03)
[2020-12-27 04:00] VITALS: BP 135/50
[2020-12-27] MEDS: PANTOPRAZOLE SODIUM 40 MG TABLET.DR PO SCH (05:56)
[2020-12-27 06:27] LABS: HEMATOCRIT 36.2 % (31.2-41.9); MEAN CORPUSCULAR VOLUME 92.5 fL (75.5-95.3); PLATELET COUNT (AUTO) 582 K/uL (179-408)
--- NOTE | 2020-12-27 06:57 | NUR ---
awake most of the nite ,had 3 bowel movements mashy black color. patient getting feosol tablet. able to have needs met , used call light when she wants something.
--- NOTE | 2020-12-27 07:00 | NUR ---
RECEIVED PATIENT AWAKE/ALERT, DOES NOT SPEAK BULGARIAN. REORIENTED TO THE ROOM. NO DISTRESS IDENTIFIED. KEPT CALL LIGHT WITHIN REACH. WILL CONTINUE TO MONITOR.
[2020-12-27 07:13] LABS: BILIRUBIN,TOTAL 0.3 mg/dL (0.2-1.0); CREATININE 0.7 mg/dL (0.6-1.3); MAGNESIUM 1.8 mg/dL (1.8-2.4); POTASSIUM 3.7 mmol/L (3.5-5.1); TOTAL PROTEIN, SERUM 6.6 g/dL (6.4-8.2)
[2020-12-27 07:30] VITALS: BP 131/75
[2020-12-27 07:54] LABS: THYROID STIMULATING HORMONE 1.941 mIU/mL (0.358-3.740)
[2020-12-27] MEDS: FERROUS SULFATE 325 MG TABEC PO SCH ×2 (09:00→20:26)
[2020-12-27] MEDS: ASCORBIC ACID 500 MG TABLET PO SCH (09:00)
[2020-12-27] MEDS: ZINC SULFATE 220 MG CAPSULE PO SCH (09:00)
[2020-12-27] MEDS ORDERED: POTASSIUM CHLORIDE 20 MEQ TAB.PRT.SR PO ONE (09:00)
[2020-12-27] MEDS: CALCIUM CARB/VITAMIN D 500MG-200UNITS TABLET PO SCH ×2 (09:00→16:45)
[2020-12-27] MEDS: MULTIVITAMINS,THERAPEUTIC TABLET PO SCH (09:00)
[2020-12-27] MEDS: FUROSEMIDE 20 MG TABLET PO SCH (09:22)
[2020-12-27] MEDS: DOCUSATE SODIUM 100 MG CAPSULE PO SCH ×2 (09:23→20:26)
[2020-12-27] MEDS: VALSARTAN 160 MG TABLET PO SCH (09:23)
[2020-12-27] MEDS: ENSURE ENLIVE (VAN) 240 ML LIQUID PO SCH (09:24)
[2020-12-27] MEDS: DORZOLAMIDE/TIMOLOL OPHT DROP 10 ML BOTTLE RIGHTEYE SCH ×2 (09:26→16:45)
[2020-12-27] MEDS: ACIDOPHILUS/BULGARICUS CHEW TAB PO SCH ×2 (09:30→20:25)
--- NOTE | 2020-12-27 12:42 | NUR ---
MD ORDER TO DC YANEZ CATHETER. PATIENT TOLERATED IT WELL WITH A REMAINING OUTPUT OF 1100ml IN THE BAG. WILL MONITOR FOR ANY SIGNIFICANT CHANGES.
--- NOTE | 2020-12-27 14:54 | NUR ---
INTERDISCIPLINARY TEAM CONFERENCE
[2020-12-27] MEDS ORDERED: WARFARIN SODIUM 4 MG TABLET PO SCH ×2 (15:00→17:00)
[2020-12-27 16:00] VITALS: BP 121/71
[2020-12-27] MEDS: HYDROCODONE/APAP 5-325MG TABLET PO PRN (16:40)
[2020-12-27] MEDS ORDERED: WARFARIN SODIUM 5 MG TABLET PO SCH (17:00)
--- NOTE | 2020-12-27 18:11 | NUR ---
PATIENT WAS NOTED WITH URINE OUTPUT AFTER FC REMOVAL. GIVEN X1 PRN PAIN MEDICATION DURING THE SHIFT. REFUSED TO TAKE ALL THE VITAMINS. FREQUENT CHECKS DONE. KEPT CALL LIGHT WITHIN REACH. ALL DUE MEDS AND ALL NEEDS ATTENDED. WILL ENDORSE TO THE NEXT SHIFT FOR CONTINUITY OF CARE.
[2020-12-27 20:00] VITALS: BP 128/70
[2020-12-27] MEDS: LATANOPROST OPHT DROP 2.5 ML BOTTLE EACHEYE SCH (20:25)
[2020-12-27] MEDS: TAMSULOSIN HCL 0.4 MG CAP.SR.24H PO SCH (20:26)
[2020-12-27] MEDS ORDERED: LOPERAMIDE HCL 2 MG CAPSULE PO PRN (20:30)
[2020-12-27] MEDS: ACETAMINOPHEN 325 MG TABLET PO PRN (21:50)
[2020-12-28 04:00] VITALS: BP 125/80
[2020-12-28] MEDS: PANTOPRAZOLE SODIUM 40 MG TABLET.DR PO SCH (06:13)
--- NOTE | 2020-12-28 06:48 | NUR ---
Pt slept intermittently throughout the night. Due medications given and tolerated well. Noted with yellowish urine in diaper and 1 BM of soft formed stool. All needs attended. Call light placed within reach. Frequent visual checks done. Will endorse to next shift for continuity of care.
[2020-12-28 08:00] VITALS: BP 128/78
[2020-12-28] MEDS: ACIDOPHILUS/BULGARICUS CHEW TAB PO SCH ×2 (08:24→20:50)
[2020-12-28] MEDS: FUROSEMIDE 20 MG TABLET PO SCH (08:25)
[2020-12-28] MEDS: FERROUS SULFATE 325 MG TABEC PO SCH ×2 (08:25→20:50)
[2020-12-28] MEDS: ENSURE ENLIVE (VAN) 240 ML LIQUID PO SCH (08:31)
[2020-12-28] MEDS: VALSARTAN 160 MG TABLET PO SCH (08:31)
[2020-12-28] MEDS: ASCORBIC ACID 500 MG TABLET PO SCH (08:32)
[2020-12-28] MEDS: DOCUSATE SODIUM 100 MG CAPSULE PO SCH ×2 (08:32→20:50)
[2020-12-28] MEDS: CALCIUM CARB/VITAMIN D 500MG-200UNITS TABLET PO SCH ×2 (08:32→16:34)
[2020-12-28] MEDS: MULTIVITAMINS,THERAPEUTIC TABLET PO SCH (08:32)
[2020-12-28] MEDS: ZINC SULFATE 220 MG CAPSULE PO SCH (08:33)
[2020-12-28] MEDS: DORZOLAMIDE/TIMOLOL OPHT DROP 10 ML BOTTLE RIGHTEYE SCH ×2 (08:47→16:37)
[2020-12-28 15:18] VITALS: BP 122/76
[2020-12-28] MEDS: HYDROCODONE/APAP 5-325MG TABLET PO PRN (16:35)
[2020-12-28] MEDS: WARFARIN SODIUM 5 MG TABLET PO SCH (16:37)
[2020-12-28 20:00] VITALS: BP 114/61
[2020-12-28] MEDS: LATANOPROST OPHT DROP 2.5 ML BOTTLE EACHEYE SCH (20:50)
[2020-12-28] MEDS: ACETAMINOPHEN 325 MG TABLET PO PRN (20:50)
[2020-12-28] MEDS: TAMSULOSIN HCL 0.4 MG CAP.SR.24H PO SCH (20:50)
[2020-12-29 04:00] VITALS: BP 110/60
[2020-12-29] MEDS: PANTOPRAZOLE SODIUM 40 MG TABLET.DR PO SCH (06:02)
[2020-12-29 08:03] VITALS: BP 114/71
[2020-12-29] MEDS: ACIDOPHILUS/BULGARICUS CHEW TAB PO SCH ×2 (08:31→20:05)
[2020-12-29] MEDS: DOCUSATE SODIUM 100 MG CAPSULE PO SCH ×2 (08:31→20:05)
[2020-12-29] MEDS: VALSARTAN 160 MG TABLET PO SCH (08:32)
[2020-12-29] MEDS: ENSURE ENLIVE (VAN) 240 ML LIQUID PO SCH (08:32)
[2020-12-29] MEDS: FUROSEMIDE 20 MG TABLET PO SCH (08:32)
[2020-12-29] MEDS: FERROUS SULFATE 325 MG TABEC PO SCH ×2 (08:32→20:05)
[2020-12-29] MEDS: DORZOLAMIDE/TIMOLOL OPHT DROP 10 ML BOTTLE RIGHTEYE SCH ×2 (08:33→17:11)
[2020-12-29] MEDS: CALCIUM CARB/VITAMIN D 500MG-200UNITS TABLET PO SCH ×2 (08:38→17:00)
[2020-12-29] MEDS: MULTIVITAMINS,THERAPEUTIC TABLET PO SCH (08:38)
[2020-12-29] MEDS: ASCORBIC ACID 500 MG TABLET PO SCH (08:39)
[2020-12-29] MEDS: ZINC SULFATE 220 MG CAPSULE PO SCH (08:39)
[2020-12-29 09:15] LABS: HEMATOCRIT 36.5 % (31.2-41.9); MEAN CORPUSCULAR HEMOGLOBIN 30.8 uug (24.7-32.8); MEAN CORPUSCULAR VOLUME 93.1 fL (75.5-95.3); PLATELET COUNT (AUTO) 549 K/uL (179-408)
[2020-12-29 09:42] LABS: CREATININE 0.7 mg/dL (0.6-1.3); POTASSIUM 3.8 mmol/L (3.5-5.1)
--- NOTE | 2020-12-29 10:50 | NUR ---
Dr. Dixon in the unit, informed MD regarding WBC result of 14.2 and update given. MD ordered urinalysis with urine culture.
[2020-12-29 12:13] VITALS: BP 114/71
[2020-12-29 13:58] LABS: *BILIRUBIN,URIN NEGATIVE (NEGATIVE); *BLOOD, URINE 1+ (NEGATIVE); *CLARITY,URINE SLIGHTLY CLOUDY (CLEAR); *COLOR,URINE YELLOW (YELLOW); *KETONES,URINE NEGATIVE (NEGATIVE); *UROBILINOGEN,URINE 0.2 E.U./dl (NORMAL); LEUKOCYTE ESTERASE ,URINE 3+ (NEGATIVE); NITRITE, URINE POSITIVE (NEGATIVE); UGLUCOSE NEGATIVE (NEGATIVE)
[2020-12-29 15:48] LABS: BACTERIA,URINE MANY /HPF (NONE SEEN); SQUAMOUS EPITHELIAL CELL,UR FEW /HPF (NONE SEEN); WBC,URINE 50-80 /HPF (0-3)
[2020-12-29 16:21] VITALS: BP 107/64
[2020-12-29] MEDS: WARFARIN SODIUM 5 MG TABLET PO SCH (16:29)
[2020-12-29] MEDS: HYDROCODONE/APAP 5-325MG TABLET PO PRN (16:30)
--- NOTE | 2020-12-29 17:30 | NUR ---
Notified Dr. Rizvi about urinalysis result and per MD he will put order in.
[2020-12-29 20:00] VITALS: BP 116/72
[2020-12-29] MEDS: TAMSULOSIN HCL 0.4 MG CAP.SR.24H PO SCH (20:05)
[2020-12-29] MEDS: LATANOPROST OPHT DROP 2.5 ML BOTTLE EACHEYE SCH (20:08)
--- NOTE | 2020-12-29 20:54 | NUR ---
Received pt resting in bed. AAO x2. Bulgarian speaking. No acute distress noted. No facial cues for pain/ discomfort noted. Due meds given as ordered. Safety measures maintained. Call light and personal items within reach. Will continue to monitor.
[2020-12-30] MEDS: HYDROCODONE/APAP 5-325MG TABLET PO PRN (02:08)
[2020-12-30 04:00] VITALS: BP 139/66
[2020-12-30] MEDS: PANTOPRAZOLE SODIUM 40 MG TABLET.DR PO SCH (06:06)
[2020-12-30 07:30] LABS: HEMATOCRIT 35.5 % (31.2-41.9); MEAN CORPUSCULAR HEMOGLOBIN 31.3 uug (24.7-32.8); MEAN CORPUSCULAR VOLUME 92.2 fL (75.5-95.3); PLATELET COUNT (AUTO) 514 K/uL (179-408)
[2020-12-30 08:00] VITALS: BP 133/71
[2020-12-30] MEDS: VALSARTAN 160 MG TABLET PO SCH (08:55)
[2020-12-30] MEDS: FUROSEMIDE 20 MG TABLET PO SCH (08:55)
[2020-12-30] MEDS: FERROUS SULFATE 325 MG TABEC PO SCH (08:56)
[2020-12-30] MEDS: DOCUSATE SODIUM 100 MG CAPSULE PO SCH (08:56)
[2020-12-30] MEDS: MULTIVITAMINS,THERAPEUTIC TABLET PO SCH (08:57)
[2020-12-30] MEDS: CALCIUM CARB/VITAMIN D 500MG-200UNITS TABLET PO SCH (08:57)
[2020-12-30] MEDS: ENSURE ENLIVE (VAN) 240 ML LIQUID PO SCH (08:58)
[2020-12-30] MEDS: ASCORBIC ACID 500 MG TABLET PO SCH (08:58)
[2020-12-30] MEDS: ZINC SULFATE 220 MG CAPSULE PO SCH (08:58)
[2020-12-30] MEDS: DORZOLAMIDE/TIMOLOL OPHT DROP 10 ML BOTTLE RIGHTEYE SCH (08:58)
[2020-12-30] MEDS: ACIDOPHILUS/BULGARICUS CHEW TAB PO SCH (09:02)
[2020-12-30] MEDS: CEphaleXIN 500 MG CAPSULE PO SCH ×2 (09:02→13:40)
[2020-12-30 12:00] VITALS: BP 100/58
--- NOTE | 2020-12-30 15:43 | NUR ---
patient discharged home to the [facility], picked up by ambulance, no acute distress noted, patient is verbally responsive, no sob, resp even nonlabored, skin warm and dry to touch, dentures sent with ambulance, IV removed, ID band removed, instructions provided to the daughter Bhavesh, about each medication, verbalized understanding of it, written instructions sent home as well.
== END 2020-12-30 15:00 | disposition home health service (06) | DRG 871 ==
PROVIDERS: ADMIT Physical Medicine & Rehabilitation Pain Medicine; ATTEND Physical Medicine & Rehabilitation Pain Medicine
DX: A41.59 Other Gram-negative sepsis (principal); G92.8 Other toxic encephalopathy; N39.0 Urinary tract infection, site not specified; R65.20 Severe sepsis without septic shock; D3A.8 Other benign neuroendocrine tumors; Z86.711 Personal history of pulmonary embolism; Z86.718 Personal history of other venous thrombosis and embolism; E27.8 Other specified disorders of adrenal gland; D75.839 Thrombocytosis, unspecified; M48.00 Spinal stenosis, site unspecified; Z90.411 Acquired partial absence of pancreas; I11.9 Hypertensive heart disease without heart failure; E78.5 Hyperlipidemia, unspecified; Z90.81 Acquired absence of spleen; Z79.01 Long term (current) use of anticoagulants; G89.29 Other chronic pain; M54.9 Dorsalgia, unspecified; R47.81 Slurred speech; R53.1 Weakness; R53.81 Other malaise; M06.9 Rheumatoid arthritis, unspecified; R19.7 Diarrhea, unspecified; E88.09 Other disorders of plasma-protein metabolism, not elsewhere classified; Z68.28 Body mass index [BMI] 28.0-28.9, adult; E66.9 Obesity, unspecified; K21.9 Gastro-esophageal reflux disease without esophagitis; Z91.81 History of falling
CPT/HCPCS: 36415; 70030-TC; 71045; 71260; 74018; 83550; 83735; 84100; 84443; 85025; 85610; 87077; 87086; 97161; A4663; C1758; J0696; J1650; J7030; J7050; J7060; Q9967